=== PATIENT | male | born 1945 | race Caucasian/White ===

== ENCOUNTER 2018-02-18 01:32 | Outpatient (CLI) | payer MEDICARE, BC, SELFPAY | END 2018-02-18 01:52 | PROVIDERS: PCP Family Medicine; Visit Provider Internal Medicine Clinical Cardiac Electrophysiology | DX: I48.91 Unspecified atrial fibrillation (principal); R07.89 Other chest pain; I49.1 Atrial premature depolarization; I49.3 Ventricular premature depolarization | CPT/HCPCS: 93225 ==

== ENCOUNTER 2018-02-19 17:05 | Outpatient (CLI) | payer MEDICARE, BC, SELFPAY ==
--- NOTE | 2018-02-22 09:50 | HOLTER_ITS ---
Holter Monitor DATE OF DICTATION February 22, 2017 24-hour study INTERPRETATION Baseline rhythm sinus. Frequent single PAC. 2 bursts of SVT, longest 3 beat duration, fastest 111 beats per minute. No atrial fibrillation. Rare single PVC. 2 couplet. 1 triplet. No VT. Heart rates as low as 55-60 beats per minute, sinus bradycardia with first degree AV block. SYMPTOMS Tight chest noted twice during sinus rhythm 107, 114 beats per minute, no ST-T wave changes. Average heart rate 67 beats per minute, range 59-123 beats per minute. Pedro Chen M.D. ELIECER/deon T-02/22/2018
== END 2018-02-19 17:25 ==
PROVIDERS: PCP Family Medicine; Visit Provider Internal Medicine Clinical Cardiac Electrophysiology
DX: I48.91 Unspecified atrial fibrillation (principal); R07.89 Other chest pain; I49.1 Atrial premature depolarization; I49.3 Ventricular premature depolarization
CPT/HCPCS: 93226

== ENCOUNTER 2018-02-22 08:48 | Outpatient (CLI) | payer MEDICARE, BC, SELFPAY | END 2018-02-22 09:08 | PROVIDERS: PCP Family Medicine; Referring Provider Family Medicine; Visit Provider Internal Medicine Interventional Cardiology | DX: I48.91 Unspecified atrial fibrillation (principal); R07.89 Other chest pain; I49.1 Atrial premature depolarization; I49.3 Ventricular premature depolarization | CPT/HCPCS: 93227 ==

== ENCOUNTER 2018-05-22 09:12 | Outpatient (CLI) | payer MEDICARE, BC, SELFPAY ==
[2018-05-22 10:51] LABS: ALT 27 U/L (12-78); AST 20 U/L (15-37); Albumin 3.8 g/dL (3.4-5.0); Alkaline Phosphatase 76 U/L (46-116); Anion Gap 5.9 mmol/L (3-11); BUN 18 mg/dL (7-18); Bilirubin, Total 0.4 mg/dL (0.2-1.0); CO2 30.1 mmol/L (21.0-32.0); CREATININE 0.82 mg/dL (0.70-1.30); Calcium 9.3 mg/dL (8.5-10.1); Chloride 104 mmol/L (98-107); Cholesterol 183 mg/dL (50-200); Glucose 96 mg/dL (70-100); HDL Cholesterol 58 mg/dL (40-60); LDL CHOLESTEROL 108 mg/dL (<100); Potassium 4.5 mmol/L (3.5-5.1); Sodium 140 mmol/L (136-145); Total Protein 7.4 g/dL (6.4-8.2); Triglyceride 66 mg/dL (30-150)
== END 2018-05-22 09:32 ==
PROVIDERS: PCP Family Medicine; Visit Provider Family Medicine
DX: E78.5 Hyperlipidemia, unspecified (principal)
CPT/HCPCS: 36415; 80053; 80061; 83721

== ENCOUNTER 2019-09-14 03:37 | Outpatient (CLI) | payer MEDICARE, BC, SELFPAY ==
[2019-09-14 09:09] LABS: Anion Gap 4.1 mmol/L (3-11); BUN 13 mg/dL (7-18); CO2 28.9 mmol/L (21.0-32.0); CREATININE 0.94 mg/dL (0.70-1.30); Calcium 9.5 mg/dL (8.5-10.1); Chloride 107 mmol/L (98-107); Glucose 99 mg/dL (74-106); Potassium 4.6 mmol/L (3.5-5.1); Sodium 140 mmol/L (136-145); TSH (W/Ref FT4) 1.86 uIU/mL (0.36-3.74)
[2019-09-14 09:37] LABS: Folate 17.5 ng/mL (8.6-20.0); Vitamin B12 181 pg/mL (193-986)
[2019-09-15 10:20] LABS: Syphilis Serology (RPR) Negative (Negative)
[2019-09-17 12:46] LABS: Thiamine (Vitamin B1), WB 109 nmol/L (70-180)
== END 2019-09-14 03:57 ==
PROVIDERS: PCP Family Medicine; Visit Provider Family Medicine
DX: G62.9 Polyneuropathy, unspecified (principal); I48.0 Paroxysmal atrial fibrillation
CPT/HCPCS: 36415; 80048; 82607; 82746; 84425; 84443; 86592

== ENCOUNTER 2019-09-23 04:29 | Outpatient (CLI) | payer MEDICARE, BC, SELFPAY ==
[2019-09-23 09:29] LABS: Absolute Basophil Count 0.05 10^3/uL (0.0-0.2); Absolute Eosinophil Count 0.64 10^3/uL (0.0-0.7); Absolute Monocyte Count 0.77 10^3/uL (0.1-0.8); Absolute Neutrophil Count 3.13 10^3/uL (1.2-6.7); Basophils % 0.8; Eosinophils % 9.7; HGB 12.2 g/dL (13.5-17.5); Lymphocytes % 30.3; MCH 26.3 pg (27.0-33.0); MCHC 31.3 % (32.0-36.0); MCV 84.2 fL (80-95); MPV 9.8 fL (8.0-11.0); Monocytes % 11.7; Neutrophils % 47.5; Nucleated RBC 0 %; Platelet Count 224 10^3/uL (130-400); RBC 4.63 10^6/uL (4.36-5.78); RDW 15.5 % (11.8-14.1); RDW-SD 46.7 fL; WBC 6.59 10^3/uL (4.4-10.8)
[2019-09-26 13:16] LABS: Intrinsic Factor Blocking Ab Positive (Negative)
== END 2019-09-23 04:49 ==
PROVIDERS: PCP Family Medicine; Visit Provider Family Medicine
DX: D51.0 Vitamin B12 deficiency anemia due to intrinsic factor deficiency (principal); G62.9 Polyneuropathy, unspecified
CPT/HCPCS: 36415; 85025; 86340

== ENCOUNTER 2019-10-21 02:01 | Outpatient (CLI) | payer MEDICARE, BC, SELFPAY ==
[2019-10-21 09:54] LABS: Vitamin B12 295 pg/mL (193-986)
== END 2019-10-21 02:21 ==
PROVIDERS: PCP Family Medicine; Visit Provider Family Medicine
DX: D51.0 Vitamin B12 deficiency anemia due to intrinsic factor deficiency (principal)
CPT/HCPCS: 36415; 82607

== ENCOUNTER 2019-11-08 19:00 | Outpatient (CLI) | payer MEDICARE, BC, SELFPAY ==
--- NOTE | 2019-11-08 15:57 | DI.RAD_ITS ---
EXAM: XR CHEST 2V PA LATERAL CLINICAL HISTORY: Increasing GOODWIN R06.00 TECHNIQUE: 2D digital imaging was performed. COMPARISON: No exams were available for comparison FINDINGS: The heart is enlarged. A pacemaker is noted. The lungs are clear. No infiltrate, effusion or pulmo nary edema is seen. there are mild degenerative changes in the thoracic spine. . IMPRESSION: No acute abnormality
== END 2019-11-08 19:20 ==
PROVIDERS: PCP Family Medicine; Visit Provider Family Medicine
DX: R06.00 Dyspnea, unspecified (principal); I51.7 Cardiomegaly
CPT/HCPCS: 71046

== ENCOUNTER → 2019-11-09 08:18 | Outpatient (BNVA) | payer MEDICARE, BC, SELFPAY | PROVIDERS: PCP Family Medicine; Referring Provider Family Medicine; Visit Provider Psychiatry & Neurology Neurology | DX: G62.9 Polyneuropathy, unspecified (principal); E53.8 Deficiency of other specified B group vitamins; G56.01 Carpal tunnel syndrome, right upper limb; G25.0 Essential tremor; I10 Essential (primary) hypertension | CPT/HCPCS: 95910; 99204 ==

== ENCOUNTER 2020-01-04 03:12 | Outpatient (CLI) | payer MEDICARE, BC, SELFPAY ==
[2020-01-04 19:07] LABS: Vitamin B12 1981 pg/mL (193-986)
== END 2020-01-04 03:32 ==
PROVIDERS: PCP Family Medicine; Visit Provider Family Medicine
DX: D51.0 Vitamin B12 deficiency anemia due to intrinsic factor deficiency (principal); E53.8 Deficiency of other specified B group vitamins
CPT/HCPCS: 36415; 82607

== ENCOUNTER 2020-01-11 03:36 | Outpatient (CLI) | payer MEDICARE, BC, SELFPAY ==
[2020-01-11 17:29] LABS: Vitamin B12 865 pg/mL (193-986)
== END 2020-01-11 03:56 ==
PROVIDERS: PCP Family Medicine; Visit Provider Family Medicine
DX: E53.8 Deficiency of other specified B group vitamins (principal); D51.0 Vitamin B12 deficiency anemia due to intrinsic factor deficiency
CPT/HCPCS: 36415; 82607

== ENCOUNTER 2020-01-18 03:36 | Outpatient (CLI) | payer MEDICARE, BC, SELFPAY ==
[2020-01-18 15:52] LABS: Abs Immature Grans 0.02 10^3/uL (0.0-0.06); Absolute Basophil Count 0.03 10^3/uL (0.0-0.2); Absolute Eosinophil Count 0.21 10^3/uL (0.0-0.7); Absolute Lymphocyte Count 2.45 10^3/uL (1.2-3.4); Absolute Monocyte Count 0.95 10^3/uL (0.1-0.8); Absolute Neutrophil Count 4.74 10^3/uL (1.2-6.7); Basophils % 0.4; Eosinophils % 2.5; HGB 11.4 g/dL (13.5-17.5); Immature Grans % 0.2; Lymphocytes % 29.2; MCH 26.2 pg (27.0-33.0); MCHC 31.7 % (32.0-36.0); MCV 82.8 fL (80-95); MPV 9.4 fL (8.0-11.0); Monocytes % 11.3; Neutrophils % 56.4; Nucleated RBC 0 %; Platelet Count 222 10^3/uL (130-400); RBC 4.35 10^6/uL (4.36-5.78); RDW-SD 45.3 fL
[2020-01-18 17:36] LABS: Vitamin B12 852 pg/mL (193-986)
== END 2020-01-18 03:56 ==
PROVIDERS: PCP Family Medicine; Visit Provider Family Medicine
DX: D51.0 Vitamin B12 deficiency anemia due to intrinsic factor deficiency (principal); E53.8 Deficiency of other specified B group vitamins
CPT/HCPCS: 36415; 82607; 85025

== ENCOUNTER 2020-01-30 02:12 | Outpatient (CLI) | payer MEDICARE, BC, SELFPAY ==
[2020-01-30 08:00] LABS: Abs Immature Grans 0.01 10^3/uL (0.0-0.06); Absolute Basophil Count 0.04 10^3/uL (0.0-0.2); Absolute Eosinophil Count 0.26 10^3/uL (0.0-0.7); Absolute Lymphocyte Count 2.23 10^3/uL (1.2-3.4); Absolute Monocyte Count 0.68 10^3/uL (0.1-0.8); Absolute Neutrophil Count 2.78 10^3/uL (1.2-6.7); Basophils % 0.7; Eosinophils % 4.3; HCT 36.7 % (40.0-50.0); Immature Grans % 0.2; Lymphocytes % 37.2; MCH 26.8 pg (27.0-33.0); MCHC 32.7 % (32.0-36.0); MCV 81.9 fL (80-95); MPV 9.2 fL (8.0-11.0); Monocytes % 11.3; Neutrophils % 46.3; Nucleated RBC 0 %; Platelet Count 292 10^3/uL (130-400); RBC 4.48 10^6/uL (4.36-5.78); RDW 14.7 % (11.8-14.1); RDW-SD 44.5 fL
[2020-01-30 09:21] LABS: Ferritin 9 ng/mL (26-388); Vitamin B12 1043 pg/mL (193-986)
[2020-01-30 09:30] LABS: Iron 44 ug/dL (65-175); Total Iron Binding Capacity 358 ug/dL (250-450); Transferrin Sat 12 % (20-55)
== END 2020-01-30 02:32 ==
PROVIDERS: PCP Family Medicine; Visit Provider Family Medicine
DX: E53.8 Deficiency of other specified B group vitamins (principal); D51.0 Vitamin B12 deficiency anemia due to intrinsic factor deficiency
CPT/HCPCS: 36415; 82607; 82728; 83540; 83550; 85025

== ENCOUNTER 2020-02-01 02:47 | Outpatient (CLI) | payer MEDICARE, BC, SELFPAY ==
[2020-02-01 11:38] LABS: Reticulocyte 0.9 % (0.5-2.4)
[2020-02-01 12:19] LABS: C-Reactive Protein 0.26 mg/dL (0.0-0.3)
[2020-02-01 12:43] LABS: ESR 25 mm/hr (1-20)
[2020-02-02 10:22] LABS: IgA 367 mg/dL (85-499); IgG 1285 mg/dL (610-1,616); IgM 123 mg/dL (35-242); Kappa Free Light Chain 1.99 mg/dL (0.33-1.94); Lambda Free Light Chain 1.33 mg/dL (0.57-2.63)
[2020-02-06 13:38] LABS: Albumin 57.2 % (55.8-66.1); Total Protein 7.9 g/dL (6.3-8.2)
== END 2020-02-01 03:07 ==
PROVIDERS: Internal Medicine Hematology; PCP Family Medicine; Visit Provider Family Medicine
DX: D53.9 Nutritional anemia, unspecified (principal); M26.69 Other specified disorders of temporomandibular joint
CPT/HCPCS: 36415; 82784; 85652; 83883; 84165; 84443; 85045; 86140

== ENCOUNTER 2020-02-16 01:27 | Outpatient (CLI) | payer MEDICARE, BC, SELFPAY ==
--- NOTE | 2020-02-16 12:45 | DI.CT_ITS ---
EXAM: CT HEAD WO/W CLINICAL HISTORY: POSITIONAL HEADACHE, R51.0, > MASS. TECHNIQUE: Imaging Protocol: Both noninfused and contrast infused CT scans of the brain were perform ed. IV Contrast Dose =100 cc Axial computed tomography images with coronal and sagittal reformatted images were created and review ed COMPARISON: No exams were available for comparison FINDINGS: There are no skull fractures nor fluid in the visualized paranasal sinuses. There is no evidence of intracranial hemorrhage, mass effect, or shift of midline structures. There are no extra-axial fluid collections. The ventricles are not enlarged or shifted and there is no blo od within the ventricular system nor within the basal cisterns. There are no ring enhancing lesions in the brain and there is no abnormal meningeal enhancement, foca l or diffuse. No obvious aneurysm or vascular malformation. IMPRESSION: No significant intracranial findings. No significant enhancing intracranial findings. RADIATION DOSE DELIVERED: 1,751.33mGy.cm Total DLP DATA REPOSITORY: All CT scans at this facility are submitted to the National Radiology Data Registry (NRDR) Dose Index Registry (DIR) with the [employer] (ACR). RADIATION OPTIMIZATION: All CT scans at this facility use at least one of these dose optimization te chniques: automated exposure control; mA and/or kV adjustment per patient size (includes targeted exa ms where dose is matched to clinical indication); or iterative reconstruction.
[2020-02-16] MEDS: Omnipaque 350 MG/ML 100 ML BTL IJ (13:05)
[2020-02-16 13:09] LABS: CREATININE 0.87 mg/dL (0.70-1.30)
== END 2020-02-16 01:47 ==
PROVIDERS: PCP Family Medicine; Visit Provider Psychiatry & Neurology Neurology
DX: R51.0 Headache with orthostatic component, not elsewhere classified (principal); R20.2 Paresthesia of skin; R42 Dizziness and giddiness; D50.9 Iron deficiency anemia, unspecified; M54.2 Cervicalgia
CPT/HCPCS: 70470; 82565; J3490

== ENCOUNTER 2020-02-29 03:23 | Outpatient (RCR) | payer MEDICARE, BC, SELFPAY ==
[2020-02-29] MEDS: SODIUM FER. GLUC./SUC. 125 MG in Normal Saline 100 ML 110 MG IVPB (09:17)
[2020-02-29] MEDS: Normal Saline Flush 10 ML SYR IVP (09:17)
== END 2020-03-11 23:59 | disposition home or self-care (01) ==
LOC: INF 03:23
PROVIDERS: PCP Family Medicine; Visit Provider Internal Medicine
DX: D50.9 Iron deficiency anemia, unspecified (principal)
CPT/HCPCS: 96365; J2916

== ENCOUNTER 2020-03-05 05:11 | Outpatient (CLI) | payer MEDICARE, BC, SELFPAY ==
[2020-03-05 08:40] LABS: Abs Immature Grans 0.01 10^3/uL (0.0-0.06); Absolute Basophil Count 0.03 10^3/uL (0.0-0.2); Absolute Lymphocyte Count 2.22 10^3/uL (1.2-3.4); Absolute Monocyte Count 0.62 10^3/uL (0.1-0.8); Absolute Neutrophil Count 2.33 10^3/uL (1.2-6.7); Basophils % 0.6; Eosinophils % 3.7; HCT 36.6 % (40.0-50.0); HGB 11.5 g/dL (13.5-17.5); Immature Grans % 0.2; MCH 26.1 pg (27.0-33.0); MCHC 31.4 % (32.0-36.0); MCV 83.2 fL (80-95); MPV 9.9 fL (8.0-11.0); Monocytes % 11.5; Nucleated RBC 0 %; Platelet Count 251 10^3/uL (130-400); RDW 15.9 % (11.8-14.1); RDW-SD 48.3 fL; WBC 5.41 10^3/uL (4.4-10.8)
[2020-03-05 09:04] LABS: Iron 48 ug/dL (65-175); Total Iron Binding Capacity 323 ug/dL (250-450); Transferrin Sat 15 % (20-55)
[2020-03-05 09:35] LABS: Vitamin B12 596 pg/mL (193-986)
== END 2020-03-05 05:31 ==
PROVIDERS: PCP Family Medicine; Visit Provider Family Medicine
DX: D51.0 Vitamin B12 deficiency anemia due to intrinsic factor deficiency (principal); E61.1 Iron deficiency; E53.8 Deficiency of other specified B group vitamins
CPT/HCPCS: 36415; 82607; 83540; 83550; 85025

== ENCOUNTER 2020-04-03 01:51 | Outpatient (RCR) | payer MEDICARE, BC, SELFPAY ==
[2020-03-13] MEDS: Normal Saline Flush 10 ML SYR IVP (10:37)
[2020-03-13] MEDS: SODIUM FER. GLUC./SUC. 125 MG in Normal Saline 100 ML 110 MG IVPB (10:53)
[2020-03-20] MEDS: Normal Saline Flush 10 ML SYR IVP (11:00)
[2020-03-20] MEDS: SODIUM FER. GLUC./SUC. 125 MG in Normal Saline 100 ML 110 MG IVPB (11:00)
[2020-03-27] MEDS: SODIUM FER. GLUC./SUC. 125 MG in Normal Saline 100 ML 110 MG IVPB (10:57)
[2020-03-27] MEDS: Normal Saline Flush 10 ML SYR IVP (10:58)
[2020-04-03] MEDS: Normal Saline Flush 10 ML SYR IVP (10:38)
[2020-04-03] MEDS: SODIUM FER. GLUC./SUC. 125 MG in Normal Saline 100 ML 110 MG IVPB (10:48)
== END 2020-04-08 23:59 | disposition home or self-care (01) ==
LOC: INF 01:51
PROVIDERS: PCP Family Medicine; Visit Provider Internal Medicine
DX: D50.9 Iron deficiency anemia, unspecified (principal)
CPT/HCPCS: 96365; J2916

== ENCOUNTER 2020-04-17 02:38 | Outpatient (RCR) | payer MEDICARE, BC, SELFPAY ==
[2020-04-10] MEDS: Normal Saline Flush 10 ML SYR IVP (10:50)
[2020-04-10] MEDS: SODIUM FER. GLUC./SUC. 125 MG in Normal Saline 100 ML 110 MG IVPB (10:50)
[2020-04-17] MEDS: SODIUM FER. GLUC./SUC. 125 MG in Normal Saline 100 ML 110 MG IVPB (10:45)
[2020-04-17] MEDS: Normal Saline Flush 10 ML SYR IVP (12:16)
== END 2020-05-09 23:59 | disposition home or self-care (01) ==
LOC: INF 02:38
PROVIDERS: PCP Family Medicine; Visit Provider Internal Medicine
DX: D50.9 Iron deficiency anemia, unspecified (principal)
CPT/HCPCS: 96365; J2916

== ENCOUNTER 2020-04-23 07:06 | Outpatient (CLI) | payer MEDICARE, BC, SELFPAY ==
[2020-04-23 07:37] LABS: Abs Immature Grans 0.01 10^3/uL (0.0-0.06); Absolute Basophil Count 0.03 10^3/uL (0.0-0.2); Absolute Eosinophil Count 0.22 10^3/uL (0.0-0.7); Absolute Lymphocyte Count 2.07 10^3/uL (1.2-3.4); Absolute Monocyte Count 0.58 10^3/uL (0.1-0.8); Absolute Neutrophil Count 2.04 10^3/uL (1.2-6.7); Basophils % 0.6; Eosinophils % 4.4; HCT 42.4 % (40.0-50.0); HGB 13.4 g/dL (13.5-17.5); Immature Grans % 0.2; Lymphocytes % 41.8; MCH 27.8 pg (27.0-33.0); MCHC 31.6 % (32.0-36.0); MPV 9.5 fL (8.0-11.0); Monocytes % 11.7; Neutrophils % 41.3; Nucleated RBC 0 %; Platelet Count 218 10^3/uL (130-400); RBC 4.82 10^6/uL (4.36-5.78); RDW 18.8 % (11.8-14.1); WBC 4.95 10^3/uL (4.4-10.8)
[2020-04-23 08:10] LABS: Iron 100 ug/dL (65-175); Total Iron Binding Capacity 289 ug/dL (250-450); Transferrin Sat 35 % (20-55)
[2020-04-23 08:38] LABS: Vitamin B12 664 pg/mL (193-986)
== END 2020-04-23 07:07 | disposition home or self-care (01) ==
LOC: LBO 07:06
PROVIDERS: PCP Family Medicine; Visit Provider Family Medicine
DX: D51.0 Vitamin B12 deficiency anemia due to intrinsic factor deficiency (principal); E61.1 Iron deficiency
CPT/HCPCS: 36415; 82607; 83540; 83550; 85025

== ENCOUNTER 2020-07-04 12:35 | Outpatient (RCR) | payer MEDICARE, BC, SELFPAY ==
--- NOTE | 2020-07-04 15:00 | HOLTER_ITS ---
APPROVED REPORT Conclusion This is a 48-hour monitor ordered for indication of pacemaker. The patient was in what appears to be an atrially paced rhythm with an average heart rate of 73 bpm. There are no episodes of ventricular tachycardia nor any episodes of supraventricular tachycardia. T here were rare PACs/PVCs. There were no episodes of atrial fibrillation, no pauses greater than 3 seconds and no evidence of hi gh degree heart block. There were 10 patient recorded events all of which were associated with atrially paced rhythm and sin gular PVCs.
== END 2020-07-09 23:59 | disposition home or self-care (01) ==
LOC: RT 12:35
PROVIDERS: PCP Family Medicine; Visit Provider Internal Medicine Clinical Cardiac Electrophysiology
DX: I48.91 Unspecified atrial fibrillation (principal); Z95.0 Presence of cardiac pacemaker
CPT/HCPCS: 93225; 93226

== ENCOUNTER 2020-07-10 10:44 | Outpatient (CLI) | payer MEDICARE, BC, SELFPAY | END 2020-07-10 10:45 | LOC: CARDO 09-17 12:28 | PROVIDERS: PCP Family Medicine; Referring Provider Internal Medicine Clinical Cardiac Electrophysiology; Visit Provider Internal Medicine Cardiovascular Disease | DX: I48.91 Unspecified atrial fibrillation (principal); Z95.0 Presence of cardiac pacemaker; I49.3 Ventricular premature depolarization | CPT/HCPCS: 93227 ==

== ENCOUNTER 2020-07-12 03:14 | Outpatient (CLI) | payer MEDICARE, BC, SELFPAY ==
[2020-07-12 07:47] LABS: Abs Immature Grans 0.01 10^3/uL (0.0-0.06); Absolute Basophil Count 0.02 10^3/uL (0.0-0.2); Absolute Eosinophil Count 0.18 10^3/uL (0.0-0.7); Absolute Lymphocyte Count 2.27 10^3/uL (1.2-3.4); Absolute Monocyte Count 0.66 10^3/uL (0.1-0.8); Absolute Neutrophil Count 2.43 10^3/uL (1.2-6.7); Basophils % 0.4; Eosinophils % 3.2; HCT 42.1 % (40.0-50.0); HGB 13.9 g/dL (13.5-17.5); Immature Grans % 0.2; Lymphocytes % 40.8; MCH 29.8 pg (27.0-33.0); MCV 90.3 fL (80-95); MPV 9.3 fL (8.0-11.0); Monocytes % 11.8; Neutrophils % 43.6; Nucleated RBC 0 %; Platelet Count 202 10^3/uL (130-400); RBC 4.66 10^6/uL (4.36-5.78); RDW 14.6 % (11.8-14.1); RDW-SD 48.9 fL; WBC 5.57 10^3/uL (4.4-10.8)
[2020-07-12 08:42] LABS: Iron 117 ug/dL (65-175); Total Iron Binding Capacity 288 ug/dL (250-450); Transferrin Sat 41 % (20-55)
[2020-07-12 09:00] LABS: Calculated LDL 123 mg/dL (<100); Cholesterol 206 mg/dL (<200); HDL Cholesterol 72 mg/dL (40-60); Triglyceride 56 mg/dL (<150); Vitamin B12 636 pg/mL (193-986)
== END 2020-07-12 03:15 | disposition home or self-care (01) ==
LOC: LBO 03:14
PROVIDERS: PCP Family Medicine; Visit Provider Family Medicine
DX: D51.0 Vitamin B12 deficiency anemia due to intrinsic factor deficiency (principal); E78.5 Hyperlipidemia, unspecified; I10 Essential (primary) hypertension
CPT/HCPCS: 36415; 80061; 82607; 83540; 83550; 85025

== ENCOUNTER 2020-08-14 02:37 | Outpatient (CLI) | payer MEDICARE, BC, SELFPAY ==
--- NOTE | 2020-08-14 07:30 | DI.NM_ITS ---
APPROVED REPORT Exam: Pharmacologic Patient Location: Out-Patient Room/Bed: Stress Nurse: Lauren Gracia RN Ordering Provider:SIMI JACKSON, Contact Number: [phone] BMI: 29.83 Baseline Rhythm: Atrial paced Comment: Flipped T waves lead III Indications: New onset angina with exertion, chest pain Medical History Medical History: Afib, Aflutter, hypetension, hyperlipidemia, OA, peripheral nueropathy, anemia, iron deficiency, basal cell carcinoma, colon ca, BPH Cardiac Medications: Dofetilide, apixiban, amlodipine Allergies: Finasteride Cardiac Risk Factors: Hypertension, hyperlipidemia Previous Cardiac Procedures: Ablation x5 ([id number]), pacemaker Pretest Chest Pain Characteristics: None Exercise History: Physically active Physical Disabilities: None Lung Sounds: Clear to auscultation Heart Sounds: Regular Stress Test Details Test: Pharmacologic stress was paired with low level exercise. Reason for pharmacologic stress test: pacemaker. Nuclear Acquisition: Rest Tc-99m/Stress Tc-99m 1 day Rest Isotope: Tc-99m Sestamibi. Dose: 11.5 Date: 08/14/2020 Injection Time: 0900 Stress Isotope: Tc-99m Sestamibi. Dose: 38.0 Date: 08/14/2020 Injection Time: 1020 HR Resting HR Supine: 70 bpm Max Heart Rate (APMHR): 148.202375 bpm Resting HR Standin bpm Target HR (85% APMHR): 125.616195 bpm Max HR Achieved: 81 bpm % of APMHR: 54.73 Recovery HR: 71 bpm BP Resting BP Supine: 150/92 mmHg Resting BP Standin/88 mmHg Max BP: 150/92 mmHg Recovery BP: 138/84 mmHg ECG Resting ECG: Atrial paced rhythm Ectopy: None Stress ECG: Atrial paced rhythm ST Change: No significant ST segment changes noted Arrhythmia: Rare PVC Recovery ECG: Atrial paced rhythm Recovery ST Change: No significant ST segment changes noted Recovery Arrhythmia: None Clinical Stress Symptoms: Chest tightness Exercise duration: 4 min15 sec Exercise capacity: 2.53 METs Rate Pressure Product: [id number] Stress ECG Conclusion 1. The patient is atrially paced with inferior T wave inversions at baseline. 2. This is a pharmacological stress test. 3. The EKG portion of this exam is nondiagnostic. Stress Test Summary STAGE HR BP Symptoms NOTES Supine 70 150/92 1 min post Lexiscan injection 80 138/90 mild chest tightness SpO2 98% 3 min post Lexiscan injection 78 142/78 resolved 6 min post Lexiscan injection 71 138/84 MPI Conclusion The ejection fraction was 54% with stress. There were no wall motion abnormalities. There was no evidence of ischemia on the imaging portion exam. This represents a normal SPECT stress test. Radiologist Interpretation Cholelithiasis Radiologist Interpretation by: Tesfaye Vides MD Interpretation Date/Time: 08/14/2020 15:53:41
[2020-08-14] MEDS: Regadenoson 0.4 MG/5 ML SYR IVP (10:51)
== END 2020-08-14 02:57 ==
PROVIDERS: PCP Family Medicine; Visit Provider Family Medicine
DX: R07.9 Chest pain, unspecified (principal); Z95.0 Presence of cardiac pacemaker; I10 Essential (primary) hypertension; E78.5 Hyperlipidemia, unspecified; K80.20 Calculus of gallbladder without cholecystitis without obstruction
CPT/HCPCS: 78452; 93016; 93018; 93017; J2785

== ENCOUNTER 2020-11-13 12:49 | Outpatient (CLI) | payer MEDICARE, BC, SELFPAY ==
--- NOTE | 2020-11-13 12:45 | DI.RAD_ITS ---
Exam(s) XR HAND RT COMPLETE EXAM: XR HAND RT COMPLETE CLINICAL HISTORY: Crush injury to 5th PIP joint, S69.91XA. TECHNIQUE: 2D digital imaging was performed of the right hand. Three images were obtained. AP, late ral and oblique views were obtained. COMPARISON: No exams were available for comparison FINDINGS: BONES: No acute fracture is present. No bony destructive lesion is seen. JOINTS: No dislocation present. Mild degenerative changes of the interphalangeal joint of the thumb. SOFT TISSUE: Normal. IMPRESSION: No acute fracture or dislocation. DATA REPOSITORY: RADIATION DOSE DELIVERED:
== END 2020-11-13 13:09 ==
PROVIDERS: PCP Family Medicine; Visit Provider Family Medicine
DX: S69.91XA Unspecified injury of right wrist, hand and finger(s), initial encounter (principal); X58.XXXA Exposure to other specified factors, initial encounter
CPT/HCPCS: 73130

== ENCOUNTER 2020-12-13 02:58 | Outpatient (CLI) | payer MEDICARE, BC, SELFPAY ==
[2020-12-13 08:12] LABS: Iron 108 ug/dL (65-175); Total Iron Binding Capacity 308 ug/dL (250-450); Transferrin Sat 35 % (20-55)
[2020-12-13 08:38] LABS: ALT 28 U/L (16-63); AST 22 U/L (15-37); Albumin 3.9 g/dL (3.4-5.0); Alkaline Phosphatase 66 U/L (46-116); Anion Gap 7.9 mmol/L (3-11); BUN 16 mg/dL (7-18); Bilirubin, Total 0.6 mg/dL (0.2-1.0); CO2 30.1 mmol/L (21.0-32.0); Chloride 106 mmol/L (98-107); Glucose 111 mg/dL (74-106); Sodium 144 mmol/L (136-145); Total Protein 7.2 g/dL (6.4-8.2); Vitamin B12 573 pg/mL (193-986)
== END 2020-12-13 02:59 | disposition home or self-care (01) ==
LOC: LBO 02:58
PROVIDERS: PCP Family Medicine; Visit Provider Family Medicine
DX: E78.5 Hyperlipidemia, unspecified; E61.1 Iron deficiency; E53.8 Deficiency of other specified B group vitamins
CPT/HCPCS: 36415; 80053; 82607; 83540; 83550

== ENCOUNTER 2021-03-21 02:17 | Outpatient (CLI) | payer MEDICARE, BC, SELFPAY ==
--- NOTE | 2021-03-21 07:50 | DI.CT_ITS ---
Exam(s) CT RENAL COLIC WO EXAM: CT RENAL COLIC WO CLINICAL HISTORY: L>R flank pain, hematuria, r/o kidney stone,r10.9. TECHNIQUE: Imaging Protocol: Axial computed tomography images with coronal and sagittal reformatted images were created and reviewed CONTRAST MATERIAL: Intravenous: none Oral: None COMPARISON: CT,NM,TMT NM MPI REST STRESS GRP from 08/14/2020 FINDINGS: VISUALIZED LUNG BASES: There is pleural based infiltrate in the lateral basal segment of the right lo wer lobe. No associated pleural effusion nor overlying rib destruction.. Pacemaker wire is noted in the right atrium ABDOMEN: There is no ascites. LIVER: There are no obvious focal hepatic lesions evident of this noninfused study. GALLBLADDER/BILIARY: There is a solitary 3 millimeter calculus in the gallbladder lumen. No gallblad day wall edema nor pericholecystic fluid. No calculi evident in the cystic duct and nondilated commo n bile duct. CBD is not dilated. PANCREAS: No abnormality seen in the pancreatic head and neck. However, there appears to be an isode nse possible mass in the pancreatic body measuring 3.8 by 2.9 x 2.8 cm and associated with a single 3 millimeter calcification. Pancreatic duct is not dilated. SPLEEN: Spleen is not enlarged. No obvious intrasplenic lesions. There are few tiny calcified granu steve in the spleen evident. ADRENALS: There are no significant adrenal masses. KIDNEYS:No cysts evident. No solid renal masses. No calculi nor hydronephrosis. . ABDOMINAL AORTA: Abdominal aorta is not enlarged. LYMPH NODES: There is no retroperitoneal nor paraaortic adenopathy. ABDOMINAL WALL: No evidence of significant anterior abdominal wall nor inguinal hernia. GI: There is no evidence of bowel obstruction, free air, nor abscess. PELVIS: LYMPH NODES: There is no intrapelvic nor inguinal adenopathy. GI: No evidence of appendicitis.Sigmoid is extremely redundant, reaching the right upper quadrant of the abdomen. There is a mild associated mesenteric swirl. There is no evidence of diverticulosis no r diverticulitis. URINARY BLADDER: Bladder is not distended. No obvious mass nor calculus therein. REPRODUCTIVE: Prostate at a is mildly enlarged and slightly lobulated. Seminal vesicles are also lob ulated. OSSEOUS: No significant osseous lesions. IMPRESSION: 1. No evidence of nephrolithiasis, urolithiasis, nor radiopaque calculi in the urinary bladder. No h ydronephrosis nor hydroureter. 2. The sigmoid colon in this patient is very redundant, extending to the right upper quadrant of the abdomen. However, there is no evidence of bowel obstruction. Also no significant diverticular disea se. No evidence of appendicitis. No ascites. 3. There is a single 3-4 millimeter gallstone in the gallbladder lumen. No gallbladder wall edema no r pericholecystic fluid. No dilatation of the biliary tree. 4. Incidentally noted is a possible subtle isodense mass in the pancreatic body and further imaging with IV contrast study is recommended to assess for pancreatic neoplasm. 5. Also noted is pleural based infiltrate in the right lung base, specifically in the lateral basal segment of the right lower lobe. There is no associated pleural effusion or rib destruction. Nevert heless, this also requires appropriate follow-up. This report was prioritized to the referring provider. RADIATION DOSE DELIVERED: 944.03mGy.cm Total DLP DATA REPOSITORY: All CT scans at this facility are submitted to the National Radiology Data Registry (NRDR) Dose Index Registry (DIR) with the [employer] (ACR). RADIATION OPTIMIZATION: All CT scans at this facility use at least one of these dose optimization te chniques: automated exposure control; mA and/or kV adjustment per patient size (includes targeted exa ms where dose is matched to clinical indication); or iterative reconstruction.
== END 2021-03-21 02:37 ==
PROVIDERS: PCP Family Medicine; Visit Provider Family Medicine
DX: R10.32 Left lower quadrant pain (principal); R31.9 Hematuria, unspecified; K86.89 Other specified diseases of pancreas; K80.20 Calculus of gallbladder without cholecystitis without obstruction; N40.0 Benign prostatic hyperplasia without lower urinary tract symptoms; R91.8 Other nonspecific abnormal finding of lung field
CPT/HCPCS: 74176

== ENCOUNTER 2021-04-03 00:32 | Outpatient (CLI) | payer MEDICARE, BC, SELFPAY ==
[2021-04-03 09:10] LABS: CREATININE 0.8 mg/dL (0.70-1.30)
--- NOTE | 2021-04-03 09:39 | DI.CT_ITS ---
Exam(s) CT CHEST W EXAM: CT CHEST W CLINICAL HISTORY: F/U incidental infiltrate seen on non-contrast CT,r91.8 TECHNIQUE: Imaging Protocol: Axial computed tomography images with coronal and sagittal reformatted images were created and reviewed CONTRAST MATERIAL: Intravenous: Omnipaque 350 Contrast volume:structured data in ml. COMPARISON: CT,NM,TMT NM MPI REST STRESS GRP from 08/14/[address] ABDOMEN WO/W from 04/03/2021 FINDINGS: Tracheobronchial tree: No bronchiectasis or mucous plugging. Mediastinum and Patti: No dominant adenopathy or fluid collection. Pulmonary parenchyma: Area scarring right lower lobe, unchanged from [address] nuclear medicine [address] attenuation images. No consolidation or dominant measurable mass. Calcifications peripheral lat eral right upper lobe, left lower lobe and right middle lobe. Consistent with healed granulomatous d isease. Pleura: No effusion or pneumothorax. Heart: The heart is moderately dilated. Mild coronary artery calcifications are seen. Aorta: Thoracic aorta non-dilated. Upper abdomen: Unremarkable where visualized.. Lymph nodes: Within normal limits. Bones: Osteophytes thoracic spine. Soft tissues: pacemaker overlying left pectoral muscle. Mild bilateral gynecomastia. IMPRESSION: Stable area of scarring right lower lobe. No suspicious abnormalities. RADIATION DOSE DELIVERED: Total DLP DATA REPOSITORY: All CT scans at this facility are submitted to the National Radiology Data Registry (NRDR) Dose Index Registry (DIR) with the [employer] (ACR). RADIATION OPTIMIZATION: All CT scans at this facility use at least one of these dose optimization te chniques: automated exposure control; mA and/or kV adjustment per patient size (includes targeted exa ms where dose is matched to clinical indication); or iterative reconstruction.
--- NOTE | 2021-04-03 09:39 | DI.CT_ITS ---
Exam(s) CT ABDOMEN WO/W EXAM: CT ABDOMEN WO/W CLINICAL HISTORY: pancreatic mass seen on prev imaging,k86.89. TECHNIQUE: Imaging Protocol: Axial computed tomography images with coronal and sagittal reformatted images were created and reviewed CONTRAST MATERIAL: Intravenous: Omnipaque 350 Contrast volume:100 ml Contrast route:IV - Oral: yes COMPARISON: CT,NM,TMT NM MPI REST STRESS GRP from 08/14/[address] RENAL COLIC WO from 03/21/2021 FINDINGS: ABDOMEN: Lung Bases: Scarring right lower lobe. Punctate calcifications left lower lobe.. Liver: Normal density. No measurable mass. Gallbladder and biliary tract: Single tiny calcification. No wall thickening. No biliary dilatation .. Pancreas: Overall normal density. Subtle low-attenuation ill-defined area in the body measuring roug hly 3.5 cm. There is some stranding in the adjacent fat. No definite vascular invasion. Spleen: Normal. Kidneys: Normal size, contour and axis. No radiodense stones or obstructive uropathy. No masses seen. Adrenal glands: No masses seen. Abdominal Aorta: Abdominal portion non-dilated. Lymph nodes: 1.8 centimeter maximal dimension lymph node posterior to the left adrenal gland. IMPRESSION: 3.5 centimeter ill-defined mass in the body of the pancreas. 1.8 centimeter left retroperitoneal lym ph node. RADIATION DOSE DELIVERED: Total DLP DATA REPOSITORY: All CT scans at this facility are submitted to the National Radiology Data Registry (NRDR) Dose Index Registry (DIR) with the [employer] (ACR). RADIATION OPTIMIZATION: All CT scans at this facility use at least one of these dose optimization te chniques: automated exposure control; mA and/or kV adjustment per patient size (includes targeted exa ms where dose is matched to clinical indication); or iterative reconstruction.
[2021-04-03] MEDS: Omnipaque 350 MG/ML 100 ML BTL IJ (10:14)
[2021-04-03] MEDS: Breeza Beverage 473 ML BTL 946 ML PO (10:16)
[2021-04-03] MEDS: Normal Saline Flush 10 ML SYR IVP (10:19)
== END 2021-04-03 00:52 ==
PROVIDERS: PCP Family Medicine; Visit Provider Family Medicine
DX: Z01.812 Encounter for preprocedural laboratory examination; R91.8 Other nonspecific abnormal finding of lung field; J98.4 Other disorders of lung; Z95.0 Presence of cardiac pacemaker; K86.89 Other specified diseases of pancreas; R59.0 Localized enlarged lymph nodes
CPT/HCPCS: 71260; 74170; 82565; J3490

== ENCOUNTER 2021-04-15 04:24 | Outpatient (CLI) | payer MEDICARE, BC, SELFPAY ==
[2021-04-17 12:17] LABS: CA 19-9 260 U/mL (<35)
== END 2021-04-15 04:25 | disposition home or self-care (01) ==
LOC: LBO 04:24
PROVIDERS: PCP Family Medicine; Visit Provider Family Medicine
DX: K86.89 Other specified diseases of pancreas (principal)
CPT/HCPCS: 36415; 86301

== ENCOUNTER 2021-05-20 09:28 | Emergency (ER) | payer MEDICARE, BC, SELFPAY ==
[2021-05-20 09:48] VITALS: BP 138/81; PULSE 72; RESP 16; TEMP 36.6; O2SAT 97
[2021-05-20 09:56] VITALS: BP 138/81; PULSE 75
[2021-05-20 10:34] LABS: Abs Immature Grans 0.02 10^3/uL (0.0-0.06); Absolute Basophil Count 0.02 10^3/uL (0.0-0.2); Absolute Eosinophil Count 0.11 10^3/uL (0.0-0.7); Absolute Lymphocyte Count 1.35 10^3/uL (1.2-3.4); Absolute Monocyte Count 0.61 10^3/uL (0.1-0.8); Absolute Neutrophil Count 3.73 10^3/uL (1.2-6.7); Basophils % 0.3; Eosinophils % 1.9; HCT 40.3 % (40.0-50.0); HGB 13.5 g/dL (13.5-17.5); Immature Grans % 0.3; Lactate 1.2 mmol/L (0.6-1.4); Lymphocytes % 23.1; MCH 30.2 pg (27.0-33.0); MCHC 33.5 % (32.0-36.0); MCV 90.2 fL (80-95); MPV 9.8 fL (8.0-11.0); Monocytes % 10.4; Nucleated RBC 0 %; Platelet Count 202 10^3/uL (130-400); RBC 4.47 10^6/uL (4.36-5.78); RDW-SD 42.5 fL; WBC 5.84 10^3/uL (4.4-10.8)
--- NOTE | 2021-05-20 10:36 | ED.GENADUL_ITS ---
Discharge Plan Disposition Patient Disposition: HOME Condition: Improving Discharge Details Clinical Impression: Diarrhea Primary Care Provider: Hesham Geiger ED Provider: Mae Valdez Home Meds and New Rx's Prescriptions: Continued ibuprofen 800 mg tablet 800 mg PO BID-TID PRN (Reason: pain) Qty: 90 1RF cyclobenzaprine 5 mg tablet 5 mg PO TID PRN (Reason: muscle spasm) Qty: 30 0RF lidocaine 5 % cream 1 applic topical QID PRN (Reason: pain) Qty: 30 1RF Rx Instructions: apply q6hr prn pain to both feet cyanocobalamin (vitamin B-12) 1,000 mcg/mL solution 1,000 mcg IM .q14 Qty: 25 11RF (DME) Syringe 3cc/25Gx1 3 mL 25 gauge x 1 syringe See Rx Instructions .ROUTE .MEDSUPPLY Qty: 100 3RF Rx Instructions: to administer vitamin B-12 injections Q14. E53.9 (DME) needle (disp) 18 G [BD Regular [place]vel [place]] 18 gauge x 1 needle See Rx Instructions .ROUTE .MEDSUPPLY Qty: 100 3RF Rx Instructions: As directed, Qweek, to inject B12 apixaban 5 mg tablet 5 mg PO BID Qty: 180 3RF amlodipine 5 mg tablet 5 mg PO DAILY Qty: 90 3RF dofetilide 250 mcg capsule 250 mcg PO Q12H Qty: 180 3RF lorazepam 0.5 mg tablet 0.5 mg PO Q6H PRN0RF Rx Instructions: nausea per note dated 05/06/21 [facility] [place] [facility] [place]50 [Miralax] 17 gram/dose powder 17 g PO DAILY PRN0RF Rx Instructions: Per note dated 05/06/21 [facility] loperamide [Imodium A-D] 2 mg tablet 2 mg PO Q6H PRN0RF Rx Instructions: [place] dated 05/06/21 [facility] [place] 5 mg tablet 5 mg PO QHS 0RF Rx Instructions: On chemo days tramadol 50 mg tablet 50 mg PO Q6H 0RF Label Comments: TAKE 1 TABLET BY MOUTH EVERY 6 HOURS NEEDED FOR PAIN lidocaine HCl [Lidocaine Viscous] 2 % solution 0RF Label Comments: RINSE AND GARGLE 5 ML BY MOUTH EVERY 4 HOURS NEEDED FOR PAIN oxycodone 5 mg tablet 5 mg PO Q4H 0RF Label Comments: TAKE 1 TABLET BY MOUTH EVERY 4 HOURS NEEDED FOR PAIN Discharge Instructions Instructions: Acute Diarrhea (ED) Additional Instructions: Please return immediately to the emergency department if you develop any new or worsening symptoms, if your condition does not improve as expected, or if you become otherwise concerned. It is extremely important that you call soon as possible to make an appointment to be seen in follow-up for this visit by your primary care doctor and your oncologist Referrals: Hesham Geiger DO [Primary Care Provider] - Sher Prieto MD [ CONSULTING PHYSICIAN] - Discharge Data Discharge Date/Time-TO BE ENTERED AT DEPARTURE: 05/20/21 13:58 Medical Decision Making Nicholas Golden is a 75-year-old man with a history of paroxysmal atrial fibrillation on apixaban status post pacemaker, hyperlipidemia, hypertension, pancreatic cancer diagnosed 04/30 with chemotherapy initiated 05/09/2021 presenting to emergency department with diarrhea. Patient reports that he has received 1 infusion of chemotherapy. He reports that several days after infusion he developed watery diarrhea. Patient reports that this has been ongoing every day and seems to be getting worse in the past 2 to 3 days. Patient also reports that he had sharp abdominal cramping with diarrhea this morning which was new, also reports that there was small amount of bright red blood mixed in with stool this morning. Patient reports that stool has been normal light brown-colored. No black or dark stool. Patient reports that abdominal pain was in the lower abdomen, has improved and is mild point. He reports that he has had a good appetite and has been eating and drinking fluids fairly well. He denies fever, cough, shortness of breath, vomiting, numbness, weakness, rash. Cancer center had called prior to alert of patient's arrival to the ED, they had noted that diarrhea is a side effect of patient's chemotherapy, noted that they were concerned about dehydration and possible electrolyte imbalance. On exam patient is very well and nontoxic-appearing. Benign cardiopulmonary exam. Mild tenderness palpation across lower abdomen without focal tenderness and without peritoneal signs. Concern for likely medication side effect, dehydration, possible electrolyte imbalance, possible colitis, other. Doubt C. difficile, other bacterial/parasitic etiology of diarrhea. Exam/history at this time is not consistent with massive GI bleed, sepsis, acute appendicitis, other acute emergent intra-abdominal surgical process. Plan for IV placement, IV flui d hydration, screening labs, stool studies. Patient declined pain medication at this time. Labs show hemoglobin 13.5, WBC 5.84, lactate 1.2. Patient reports that he feels improved after IV fluids, reports that he feels very well and ready to go, has had bowel movement in the emergency department with no blood, report that bowel movement in ED more solid than what he has been having. Patient reports that he is not having any abdominal pain but states that he would like to be discharged that he may have a cheeseburger for lunch. C. difficile test as negative. Very low suspicion for infectious colitis, other acute emergent intra-abdominal process at this time, CT abdomen/pelvis not indicated. No evidence of emergent GI bleed. Plan for discharge home with outpatient follow-up with PCP and oncology. I had a discussion with Patient regarding return to emergency department precautions, home care, and importance of outpatient follow-up. Pt verbalizes understanding of the plan and is amenable. Patient discharged to home with clear plan for outpatient follow-up. All questions were answered. Disposition decision was made weighing the risks and benefits of hospitalization versus outpatient treatment, the risk for further decompensation, and the patient's wishes. Lab Data Labs: Laboratory Tests Range/Units 05/20/21 05/20/21 05/20/21 10:15 10:15 10:15 WBC (4.4-10.8) 10^3/uL 5.84 RBC (4.36-5.78) 10^6/uL 4.47 Hgb (13.5-17.5) g/dL 13.5 Hct (40.0-50.0) % 40.3 MCV (80-95) fL 90.2 MCH (27.0-33.0) pg 30.2 MCHC (32.0-36.0) % 33.5 RDW (11.8-14.1) % 13.0 Plt Count (130-400) 10^3/uL 202 MPV (8.0-11.0) fL 9.8 Immature Gran % 0.3 Neutrophils % 64.0 Lymphocytes % 23.1 Monocytes % 10.4 Eosinophils % 1.9 Basophils % 0.3 Nucleated RBC % % 0 Absolute Neutrophils (1.2-6.7) 10^3/uL 3.73 Absolute Lymphocytes (1.2-3.4) 10^3/uL 1.35 Absolute Monocytes (0.1-0.8) 10^3/uL 0.61 Absolute Eosinophils (0.0-0.7) 10^3/uL 0.11 Absolute Basophils (0.0-0.2) 10^3/uL 0.02 PT (9.3-11.0) sec INR (0.9-1.1) APTT (21.0-27.5) sec VBG Lactate (0.6-1.4) mmol/L 1.2 Sodium (136-145) mmol/L 138 Potassium (3.5-5.1) mmol/L 3.9 Chloride (98-107) mmol/L 102 Carbon Dioxide (21.0-32.0) mmol/L 27.5 Anion Gap (3-11) mmol/L 8.5 BUN (7-18) mg/dL 13 Creatinine (0.70-1.30) mg/dL 0.9 Estimated GFR/1.73 m2 (mL/min/1.73m2) >= 60.00 Glucose (74-106) mg/dL 130 H Calcium (8.5-10.1) mg/dL 9.0 Magnesium (1.8-2.4) mg/dL 2.1 Total Bilirubin (0.2-1.0) mg/dL 0.4 AST (15-37) U/L 13 L ALT (16-63) U/L 19 Alkaline Phosphatase (46-116) U/L 76 Total Protein (6.4-8.2) g/dL 7.4 Albumin (3.4-5.0) g/dL 3.6 Lipase (73-393) U/L 72 TSH (0.36-3.74) uIU/mL 1.13 Urine Color (Yellow) Urine Clarity (Clear) Urine pH (5-8) Ur Specific [place] (1.005-1.025) Urine Protein (Negative) mg/dL Urine Ketones (Negative) mg/dL Urine Blood (Negative) Urine Nitrite (Negative) Urine Bilirubin (Negative) Urine Urobilinogen (Up TO 0.2) EU/dL Ur Leukocyte Esterase (Negative) Urine Glucose (Negative) mg/dL Stool Description Stool Campylobacter PCR (Negative) Stl C.difficile Tox PCR (Negative) Stool Salmonella PCR (Negative) Stool Shigella PCR (Negative) Stool Ova & Parasites Cryptosporidium/Giardia ((See Note)) Shiga Toxin (PCR) (Negative) Range/Units 05/20/21 05/20/21 05/20/21 10:15 11:15 12:20 WBC (4.4-10.8) 10^3/uL RBC (4.36-5.78) 10^6/uL Hgb (13.5-17.5) g/dL Hct (40.0-50.0) % MCV (80-95) fL MCH (27.0-33.0) pg MCHC (32.0-36.0) % RDW (11.8-14.1) % Plt Count (130-400) 10^3/uL MPV (8.0-11.0) fL Immature Gran % Neutrophils % Lymphocytes % Monocytes % Eosinophils % Basophils % Nucleated RBC % % Absolute Neutrophils (1.2-6.7) 10^3/uL Absolute Lymphocytes (1.2-3.4) 10^3/uL Absolute Monocytes (0.1-0.8) 10^3/uL Absolute Eosinophils (0.0-0.7) 10^3/uL Absolute Basophils (0.0-0.2) 10^3/uL PT (9.3-11.0) sec 10.5 INR (0.9-1.1) 1.0 APTT (21.0-27.5) sec 26.3 VBG Lactate (0.6-1.4) mmol/L Sodium (136-145) mmol/L Potassium (3.5-5.1) mmol/L Chloride (98-107) mmol/L Carbon Dioxide (21.0-32.0) mmol/L Anion Gap (3-11) mmol/L BUN (7-18) mg/dL Creatinine (0.70-1.30) mg/dL Estimated GFR/1.73 m2 (mL/min/1.73m2) Glucose (74-106) mg/dL Calcium (8.5-10.1) mg/dL Magnesium (1.8-2.4) mg/dL Total Bilirubin (0.2-1.0) mg/dL AST (15-37) U/L ALT (16-63) U/L Alkaline Phosphatase (46-116) U/L Total Protein (6.4-8.2) g/dL Albumin (3.4-5.0) g/dL Lipase (73-393) U/L TSH (0.36-3.74) uIU/mL Urine Color (Yellow) Yellow Urine Clarity (Clear) Clear Urine pH (5-8) 6.0 Ur Specific [place] (1.005-1.025) 1.020 Urine Protein (Negative) mg/dL Negative Urine Ketones (Negative) mg/dL Negative Urine Blood (Negative) Negative Urine Nitrite (Negative) Negative Urine Bilirubin (Negative) Negative Urine Urobilinogen (Up TO 0.2) EU/dL 0.2 Ur Leukocyte Esterase (Negative) Negative Urine Glucose (Negative) mg/dL Negative Stool Description Stool Campylobacter PCR (Negative) Stl C.difficile Tox PCR (Negative) Negative Stool Salmonella PCR (Negative) Stool Shigella PCR (Negative) Stool Ova & Parasites Cryptosporidium/Giardia ((See Note)) Shiga Toxin (PCR) (Negative) Range/Units 05/20/21 05/20/21 12:20 12:20 WBC (4.4-10.8) 10^3/uL RBC (4.36-5.78) 10^6/uL Hgb (13.5-17.5) g/dL Hct (40.0-50.0) % MCV (80-95) fL MCH (27.0-33.0) pg MCHC (32.0-36.0) % RDW (11.8-14.1) % Plt Count (130-400) 10^3/uL MPV (8.0-11.0) fL Immature Gran % Neutrophils % Lymphocytes % Monocytes % Eosinophils % Basophils % Nucleated RBC % % Absolute Neutrophils (1.2-6.7) 10^3/uL Absolute Lymphocytes (1.2-3.4) 10^3/uL Absolute Monocytes (0.1-0.8) 10^3/uL Absolute Eosinophils (0.0-0.7) 10^3/uL Absolute Basophils (0.0-0.2) 10^3/uL PT (9.3-11.0) sec INR (0.9-1.1) APTT (21.0-27.5) sec VBG Lactate (0.6-1.4) mmol/L Sodium (136-145) mmol/L Potassium (3.5-5.1) mmol/L Chloride (98-107) mmol/L Carbon Dioxide (21.0-32.0) mmol/L Anion Gap (3-11) mmol/L BUN (7-18) mg/dL Creatinine (0.70-1.30) mg/dL Estimated GFR/1.73 m2 (mL/min/1.73m2) Glucose (74-106) mg/dL Calcium (8.5-10.1) mg/dL Magnesium (1.8-2.4) mg/dL Total Bilirubin (0.2-1.0) mg/dL AST (15-37) U/L ALT (16-63) U/L Alkaline Phosphatase (46-116) U/L Total Protein (6.4-8.2) g/dL Albumin (3.4-5.0) g/dL Lipase (73-393) U/L TSH (0.36-3.74) uIU/mL Urine Color (Yellow) Urine Clarity (Clear) Urine pH (5-8) Ur Specific [place] (1.005-1.025) Urine Protein (Negative) mg/dL Urine Ketones (Negative) mg/dL Urine Blood (Negative) Urine Nitrite (Negative) Urine Bilirubin (Negative) Urine Urobilinogen (Up TO 0.2) EU/dL Ur Leukocyte Esterase (Negative) Urine Glucose (Negative) mg/dL Stool Description Not Applicable Stool Campylobacter PCR (Negative) Negative Stl C.difficile Tox PCR (Negative) Stool Salmonella PCR (Negative) Negative Stool Shigella PCR (Negative) Negative Stool Ova & Parasites SEE BELOW Cryptosporidium/Giardia ((See Note)) SEE BELOW Shiga Toxin (PCR) (Negative) Negative HPI General Date/Time Provider Initiated Documentation: 05/20/21 10:13 . Limitations to Documentation: no limitations . Information obtained by: patient, family, RN notes reviewed and old records reviewed . HPI Narrative: Nicholas Golden is a 75-year-old man with a history of paroxysmal atrial fibrillation on apixaban status post pacemaker, hyperlipidemia, hypertension, pancreatic cancer diagnosed 04/30 with chemotherapy initiated 05/09/2021 presenting to emergency department with diarrhea. Patient reports that he has received 1 infusion of chemotherapy. He reports that several days after infusi on he developed watery diarrhea. Patient reports that this has been ongoing every day and seems to be getting worse in the past 2 to 3 days. Patient also reports that he had sharp abdominal cramping with diarrhea this morning which was new, also reports that there was small amount of bright red blood mixed in with stool this morning. Patient reports that stool has been normal light brown-colored. No black or dark stool. Patient reports that abdominal pain was in the lower abdomen, has improved and is mild point. He reports that he has had a good appetite and has been eating and drinking fluids fairly well. He denies fever, cough, shortness of breath, vomiting, numbness, weakness, rash. Cancer center had called prior to alert of patient's arrival to the ED, they had noted that diarrhea is a side effect of patient's chemotherapy, noted that they were concerned about dehydration and possible electrolyte imbalance. Related Data Home Medications Medication Instructions Recorded Confirmed ibuprofen 800 mg tablet 800 mg PO BID-TID PRN #90 tab 05/25/18 05/20/21 cyclobenzaprine 5 mg tablet 5 mg PO TID PRN #30 tab-cap 08/20/18 01/31/20 lidocaine 5 % topical cream 1 applic TOPICAL QID PRN #30 g 11/09/19 05/20/21 needle (disp) 18 G 18 gauge x 1 #100 ea 12/02/19 01/31/20 (BD Regular [place]vel [place]) cyanocobalamin (vitamin B-12) 1,000 mcg IM .q14 #25 ml 04/24/20 05/20/21 1,000 mcg/mL injection solution syringe with needle 3 mL 25 gauge #100 ea 04/24/20 04/24/20 x 1 (Syringe) apixaban 5 mg tablet 5 mg PO BID #180 tab 10/18/20 05/20/21 amlodipine 5 mg tablet 5 mg PO DAILY #90 tab 12/13/20 05/20/21 dofetilide 250 mcg capsule 250 mcg PO Q12H #180 cap 01/01/21 05/20/21 loperamide 2 mg tablet (Imodium 2 mg PO Q6H PRN 05/06/21 05/20/21 A-D) lorazepam 0.5 mg tablet 0.5 mg PO Q6H PRN tab 05/06/21 05/20/21 polyethylene glycol 3350 17 17 g PO DAILY PRN 05/06/21 gram/dose oral powder (Miralax) lidocaine HCl 2 % mucosal solution 05/20/21 05/20/21 (Lidocaine Viscous) olanzapine 5 mg tablet 5 mg PO QHS 05/20/21 05/20/21 oxycodone 5 mg tablet 5 mg PO Q4H 05/20/21 05/20/21 tramadol 50 mg tablet 50 mg PO Q6H 05/20/21 05/20/21 Previous Rx's Medication Instructions Recorded ibuprofen 800 mg tablet 800 mg PO BID-TID PRN #90 tab 05/25/18 cyclobenzaprine 5 mg tablet 5 mg PO TID PRN #30 tab-cap 08/20/18 lidocaine 5 % topical cream 1 applic TOPICAL QID PRN #30 g 11/09/19 needle (disp) 18 G 18 gauge x 1 #100 ea 12/02/19 (BD Regular [place]vel [place]) cyanocobalamin (vitamin B-12) 1,000 mcg IM .q14 #25 ml 04/24/20 1,000 mcg/mL injection solution syringe with needle 3 mL 25 gauge #100 ea 04/24/20 x 1 (Syringe) apixaban 5 mg tablet 5 mg PO BID #180 tab 10/18/20 amlodipine 5 mg tablet 5 mg PO DAILY #90 tab 12/13/20 dofetilide 250 mcg capsule 250 mcg PO Q12H #180 cap 01/01/21 Allergies Allergy/AdvReac Type Severity Reaction Status Date / Time finasteride AdvReac Intermediate depression Verified 05/20/21 09:56 General Stated Complaint: Abd Prob AVA: 3 Review of Systems Narrative: Constitutional: denies fevers Eyes: denies eye pain ENT: denies ear pain, dental pain, sore throat Cardiovascular: denies chest pain, edema Respiratory: denies SOB, cough GI: denies vomiting, reports abdominal pain, diarrhea, blood in stool : denies flank pain, dysuria, urinary frequency/hesitation MSK: denies back pain, neck pain, arthralgias, myalgias Skin: denies rash Neuro: denies headaches, numbness, weakness PFSH All Active Problems (Updated 05/20/21 @ 13:55 by Mae Valdez MD) Diarrhea (Acute) Pancreatic cancer (Acute 04/22/21) 04/30/21 [facility] [place] - Malignant neoplasm of body of pancreas Pancreatic mass (Acute) Left flank pain (Acute) Injury of right hand (Acute) Chest pain on exertion (Acute) Hiatal hernia (Chronic) 03/05/20 [facility]. 45-43 cm from teeth Iron deficiency (Acute) Seborrheic keratosis (Acute) 01/19/20 Derm: Hammer left lower eyelid BCC (basal cell carcinoma of skin) (Acute) 07/2019 left medial ankle nodular type with squamous features. Derm: Hammer Essential tremor (Acute) Tubular adenoma of colon (Chronic 07/07/19) Adelso Mcclain DO [facility] Benign prostatic hyperplasia (Acute 02/20/17) Erectile dysfunction (Acute 02/20/17) Hyperlipidemia (Acute 02/20/17) 10 yr cardiovascular risk factor 9%, will to to 7% if on med Osteoarthritis (Acute 02/20/17) Paroxysmal A-fib (Acute 02/20/17) s/p 3 ablations (2 [facility] 2013) and cardioversion 2007 maintained on Flecainideecho 08/06/07- nl EF 67%, enlarge rgt, left atrium and right ventricle NM perfusion scan 03/12/10, normal labs 09/19 nl CMP, mild normoc S/P Pacemaker 03/29/13 Carpal tunnel syndrome of right wrist (Acute) Vitamin B12 deficiency (Acute) Peripheral neuropathy (Acute) Actinic keratosis (Acute) GOODWIN (dyspnea on exertion) (Acute) Pernicious anemia (Acute) Symptoms of neuropathy, + intrinsic factor in 2019 Essential hypertension (Acute) Atrial fibrillation and flutter (Acute ~08/2018) [facility] discharge report. 08/16/18 Left knee pain (Acute 02/20/17) Medical History (Updated 05/20/21 @ 13:55 by Mae Valdez MD) Depression Surgical History (Updated 03/08/20 @ 12:23 by Cheyenne Hawkins RN) H/O cardiac radiofrequency ablation History of esophagogastroduodenoscopy (EGD) 03/05/20 multiple biopsies. awaiting path Pacemaker (03/29/13) [facility]I Pacer Family History Mother Neoplasm Some form of Leukemia/Myeloma Father Heart disease Brother Hodgkins disease Social History Smoking/Tobacco Use Status: Never Smoking risk assessment performed?: Yes Alcohol Intake: former Drug use: Never Substance use type: does not use Household members: spouse Number of Children: 3 number of grandchildren: 4 Education Level: master's degree current occupation: Group Exercise Instructor Pets and animals: Yes Pets and animals: cat(s) What is your relationship status?: Panel score (0-1 are the most socially isolated patients): 1 What type of physical activity do you participate in: regular exercise Duration: 30-45 minutes/day Frequency: 5-6 times per week Seatbelt use: always Helmet use: Yes Drive intox or ride w/intox stock driver: Yes Working smoke detector in home: Yes Fire extinguisher in home: Yes Carbon monox detector in home: Yes Do you feel safe at home: Yes Do you feel safe in your relationship?: Yes Exam Narrative Exam Narrative: Constitutional: well and [id number], pleasant, conversing normally HENT: head atraumatic/normocephalic/normal inspection, mucous membranes moist Eyes: conjunctiva normal, sclera normal, pupils 3mm b/l Neck: no stridor, normal ROM, trachea midline Chest: normal inspection Resp: normal work of breathing, LCTAB Cardio: normal rate, normal rhythm, no murmur appreciated GI: abdomen soft, bowel mild tenderness palpation across lower abdomen, no rebound, no guarding, no focal McBurney's point tenderness to palpation, non- distended Back: normal inspection, no rash Skin: warm, dry, normal color, no rash Neuro: alert, not altered, grossly non-focal, normal tone Ext: no edema, no posterior calf tenderness to palpation Psych: normal mood, normal affect, normal behavior Course Vital Signs Vital signs: Vital Signs Temperature 36.6 C 05/20/21 09:48 Pulse 72 05/20/21 09:48 Respiratory Rate 16 05/20/21 09:48 Blood Pressure 138/81 05/20/21 09:48 Pulse Oximetry 97 05/20/21 09:48 Temperature 36.6 C 05/20/21 09:48 Temperature Source Skin 05/20/21 09:48 Pulse 72 05/20/21 09:48 Respiratory Rate 16 05/20/21 09:48 Respiratory Effort 05/20/21 09:53 Blood Pressure 138/81 05/20/21 09:48 Blood Pressure Position Sitting 05/20/21 09:48 Pulse Oximetry 97 05/20/21 09:48 Oxygen Delivery Method Room Air 05/20/21 09:48 Oxygen Flow Rate 0 05/20/21 09:48 Pain Level 3 05/20/21 09:48 Lab/Test Results Lab/Test Results: Laboratory Tests Range/Units 05/20/21 05/20/21 10:15 10:15 WBC (4.4-10.8) 10^3/uL 5.84 RBC (4.36-5.78) 10^6/uL 4.47 Hgb (13.5-17.5) g/dL 13.5 Hct (40.0-50.0) % 40.3 MCV (80-95) fL 90.2 MCH (27.0-33.0) pg 30.2 MCHC (32.0-36.0) % 33.5 RDW (11.8-14.1) % 13.0 Plt Count (130-400) 10^3/uL 202 MPV (8.0-11.0) fL 9.8 Immature Gran % 0.3 Neutrophils % 64.0 Lymphocytes % 23.1 Monocytes % 10.4 Eosinophils % 1.9 Basophils % 0.3 Nucleated RBC % % 0 Absolute Neutrophils (1.2-6.7) 10^3/uL 3.73 Absolute Lymphocytes (1.2-3.4) 10^3/uL 1.35 Absolute Monocytes (0.1-0.8) 10^3/uL 0.61 Absolute Eosinophils (0.0-0.7) 10^3/uL 0.11 Absolute Basophils (0.0-0.2) 10^3/uL 0.02 VBG Lactate (0.6-1.4) mmol/L 1.2
[2021-05-20] MEDS: Normal Saline 1,000 ML 1000 ML IV (10:57)
[2021-05-20 10:58] LABS: ALT 19 U/L (16-63); AST 13 U/L (15-37); Albumin 3.6 g/dL (3.4-5.0); Alkaline Phosphatase 76 U/L (46-116); Anion Gap 8.5 mmol/L (3-11); BUN 13 mg/dL (7-18); Bilirubin, Total 0.4 mg/dL (0.2-1.0); CO2 27.5 mmol/L (21.0-32.0); CREATININE 0.9 mg/dL (0.70-1.30); Chloride 102 mmol/L (98-107); Glucose 130 mg/dL (74-106); Lipase 72 U/L (73-393); Magnesium 2.1 mg/dL (1.8-2.4); Potassium 3.9 mmol/L (3.5-5.1); Sodium 138 mmol/L (136-145); TSH (W/Ref FT4) 1.13 uIU/mL (0.36-3.74); Total Protein 7.4 g/dL (6.4-8.2)
[2021-05-20 11:24] LABS: Bilirubin Negative (Negative); Blood Negative (Negative); Clarity Clear (Clear); Glucose Negative (Negative); Ketones Negative (Negative); Leukocyte Esterase Negative (Negative); Nitrite Negative (Negative); Urobilinogen 0.2 EU/dL (Up TO 0.2)
[2021-05-20 11:34] LABS: PTT Activated 26.3 sec (21.0-27.5); Prothrombin Time 10.5 sec (9.3-11.0)
[2021-05-20 13:53] LABS: C Diff PCR Negative (Negative)
[2021-05-21 12:22] LABS: Campylobacter PCR Negative (Negative); Salmonella PCR Negative (Negative); Shiga Toxin PCR Negative (Negative); Shigella/Enteroinvasive Ecoli Negative (Negative)
== END 2021-05-20 13:58 | disposition home or self-care (01) ==
PROVIDERS: Emergency Provider Student in an Organized Health Care Education/Training Program; PCP Family Medicine
DX: R19.7 Diarrhea, unspecified (principal); I48.0 Paroxysmal atrial fibrillation; C25.9 Malignant neoplasm of pancreas, unspecified; R10.9 Unspecified abdominal pain
CPT/HCPCS: 36415; 80053; 83690; 87329; 87493; 87505; 96360; 99284; 81003; 83605; 83735; 84443; 85025; 85610; 85730; 87177; 99283

== ENCOUNTER 2021-05-29 02:11 | Outpatient (RCR) | payer MEDICARE, BC, SELFPAY ==
[2021-05-29] MEDS: Normal Saline Flush 10 ML SYR IVP (07:50)
[2021-05-29 08:03] LABS: Abs Immature Grans 0.03 10^3/uL (0.0-0.06); Absolute Basophil Count 0.03 10^3/uL (0.0-0.2); Absolute Lymphocyte Count 2.06 10^3/uL (1.2-3.4); Absolute Monocyte Count 0.88 10^3/uL (0.1-0.8); Absolute Neutrophil Count 2.83 10^3/uL (1.2-6.7); Basophils % 0.5; Eosinophils % 3.3; HCT 40.4 % (40.0-50.0); HGB 13.1 g/dL (13.5-17.5); Immature Grans % 0.5; Lymphocytes % 34.2; MCH 29.4 pg (27.0-33.0); MCHC 32.4 % (32.0-36.0); MCV 90.8 fL (80-95); MPV 9.5 fL (8.0-11.0); Monocytes % 14.6; Neutrophils % 46.9; Platelet Count 265 10^3/uL (130-400); RBC 4.45 10^6/uL (4.36-5.78); RDW 13.1 % (11.8-14.1); RDW-SD 43.5 fL; WBC 6.03 10^3/uL (4.4-10.8)
[2021-05-29 08:14] LABS: ALT 27 U/L (16-63); AST 23 U/L (15-37); Albumin 3.5 g/dL (3.4-5.0); Alkaline Phosphatase 81 U/L (46-116); Anion Gap 6.7 mmol/L (3-11); BUN 13 mg/dL (7-18); Bilirubin, Total 0.3 mg/dL (0.2-1.0); CO2 27.3 mmol/L (21.0-32.0); Calcium 8.8 mg/dL (8.5-10.1); Chloride 104 mmol/L (98-107); Glucose 106 mg/dL (74-106); Potassium 3.8 mmol/L (3.5-5.1); Sodium 138 mmol/L (136-145); Total Protein 7.6 g/dL (6.4-8.2)
[2021-05-31 10:23] LABS: CA 19-9 462 U/mL (<35)
== END 2021-06-08 23:59 | disposition home or self-care (01) ==
LOC: INF 02:11
PROVIDERS: PCP Family Medicine; Visit Provider Internal Medicine Hematology & Oncology
DX: C25.1 Malignant neoplasm of body of pancreas (principal); Z45.2 Encounter for adjustment and management of vascular access device
CPT/HCPCS: 36591; 80053; 85025; 86301

== ENCOUNTER 2021-06-30 12:15 | Outpatient (RCR) | payer MEDICARE, BC, SELFPAY ==
[2021-06-14] MEDS: Normal Saline Flush 10 ML SYR IVP (08:16)
[2021-06-14 08:28] LABS: Abs Immature Grans 0.02 10^3/uL (0.0-0.06); Absolute Basophil Count 0.02 10^3/uL (0.0-0.2); Absolute Eosinophil Count 0.16 10^3/uL (0.0-0.7); Absolute Lymphocyte Count 1.04 10^3/uL (1.2-3.4); Absolute Monocyte Count 0.76 10^3/uL (0.1-0.8); Absolute Neutrophil Count 2.67 10^3/uL (1.2-6.7); Basophils % 0.4; Eosinophils % 3.4; HCT 36.8 % (40.0-50.0); HGB 12.1 g/dL (13.5-17.5); Immature Grans % 0.4; Lymphocytes % 22.3; MCH 29.7 pg (27.0-33.0); MCHC 32.9 % (32.0-36.0); MCV 90 fL (80-95); MPV 9.9 fL (8.0-11.0); Monocytes % 16.3; Neutrophils % 57.2; Platelet Count 187 10^3/uL (130-400); RBC 4.08 10^6/uL (4.36-5.78); RDW 13.9 % (11.8-14.1); RDW-SD 46.1 fL; WBC 4.67 10^3/uL (4.4-10.8)
[2021-06-14 08:41] LABS: ALT 25 U/L (16-63); AST 15 U/L (15-37); Albumin 3.5 g/dL (3.4-5.0); Alkaline Phosphatase 99 U/L (46-116); Anion Gap 6.4 mmol/L (3-11); BUN 14 mg/dL (7-18); Bilirubin, Total 0.3 mg/dL (0.2-1.0); CO2 28.6 mmol/L (21.0-32.0); Calcium 8.5 mg/dL (8.5-10.1); Chloride 106 mmol/L (98-107); Glucose 105 mg/dL (74-106); Potassium 3.9 mmol/L (3.5-5.1); Sodium 141 mmol/L (136-145)
[2021-06-16 13:08] VITALS: BP 156/75; PULSE 76; RESP 16; TEMP 36.6; O2SAT 99
[2021-06-16] MEDS: Heparin 500 UNITS/5 ML SYRINGE IV (13:22)
[2021-06-16] MEDS: Normal Saline Flush 10 ML SYR IVP (13:22)
[2021-06-16] MEDS: Normal Saline 1,000 ML 500 ML IV (13:23)
[2021-06-18 08:57] LABS: CA 19-9 285 U/mL (<35)
[2021-06-28] MEDS: Normal Saline Flush 10 ML SYR IVP (08:18)
[2021-06-28 08:19] LABS: Abs Immature Grans 0.01 10^3/uL (0.0-0.06); Absolute Basophil Count 0.02 10^3/uL (0.0-0.2); Absolute Eosinophil Count 0.24 10^3/uL (0.0-0.7); Absolute Lymphocyte Count 1.58 10^3/uL (1.2-3.4); Absolute Monocyte Count 0.56 10^3/uL (0.1-0.8); Absolute Neutrophil Count 1.43 10^3/uL (1.2-6.7); Basophils % 0.5; Eosinophils % 6.3; HCT 36.6 % (40.0-50.0); Immature Grans % 0.3; Lymphocytes % 41.1; MCH 30.2 pg (27.0-33.0); MCHC 32.8 % (32.0-36.0); MCV 92 fL (80-95); MPV 9.7 fL (8.0-11.0); Monocytes % 14.6; Neutrophils % 37.2; Platelet Count 178 10^3/uL (130-400); RBC 3.97 10^6/uL (4.36-5.78); RDW 14.1 % (11.8-14.1); WBC 3.84 10^3/uL (4.4-10.8)
[2021-06-28 08:37] LABS: ALT 28 U/L (16-63); AST 21 U/L (15-37); Albumin 3.3 g/dL (3.4-5.0); Alkaline Phosphatase 81 U/L (46-116); Anion Gap 6.3 mmol/L (3-11); BUN 12 mg/dL (7-18); Bilirubin, Total 0.4 mg/dL (0.2-1.0); CO2 26.7 mmol/L (21.0-32.0); Calcium 8.4 mg/dL (8.5-10.1); Chloride 106 mmol/L (98-107); Glucose 105 mg/dL (74-106); Potassium 3.9 mmol/L (3.5-5.1); Sodium 139 mmol/L (136-145)
[2021-06-30 12:30] VITALS: BP 152/72; PULSE 74; TEMP 36.6
[2021-06-30] MEDS: Heparin 500 UNITS/5 ML SYRINGE IV (12:39)
[2021-06-30] MEDS: Normal Saline Flush 10 ML SYR IVP (12:39)
[2021-07-01 12:35] LABS: CA 19-9 435 U/mL (<35)
== END 2021-07-09 23:59 | disposition home or self-care (01) ==
LOC: INF 12:15
PROVIDERS: PCP Family Medicine; Visit Provider Nurse Practitioner Adult Health
DX: C25.1 Malignant neoplasm of body of pancreas (principal); Z45.2 Encounter for adjustment and management of vascular access device
CPT/HCPCS: 36591; 80053; 96360; 96365; 96523; 85025; 86301

== ENCOUNTER 2021-07-26 00:57 | Outpatient (RCR) | payer MEDICARE, BC, SELFPAY ==
[2021-07-10 00:14] VITALS: BP 152/72; PULSE 74; RESP 16; TEMP 36.6
[2021-07-12 08:42] LABS: Abs Immature Grans 0.01 10^3/uL (0.0-0.06); Absolute Basophil Count 0.03 10^3/uL (0.0-0.2); Absolute Eosinophil Count 0.41 10^3/uL (0.0-0.7); Absolute Lymphocyte Count 1.54 10^3/uL (1.2-3.4); Absolute Monocyte Count 0.68 10^3/uL (0.1-0.8); Absolute Neutrophil Count 2.58 10^3/uL (1.2-6.7); Basophils % 0.6; Eosinophils % 7.8; HCT 36.2 % (40.0-50.0); HGB 11.8 g/dL (13.5-17.5); Immature Grans % 0.2; Lymphocytes % 29.3; MCH 29.9 pg (27.0-33.0); MCHC 32.6 % (32.0-36.0); MCV 92 fL (80-95); MPV 10.1 fL (8.0-11.0); Neutrophils % 49.1; Platelet Count 163 10^3/uL (130-400); RBC 3.94 10^6/uL (4.36-5.78); RDW 14.8 % (11.8-14.1); RDW-SD 48.9 fL; WBC 5.25 10^3/uL (4.4-10.8)
[2021-07-12 08:58] LABS: ALT 59 U/L (16-63); AST 42 U/L (15-37); Albumin 3.3 g/dL (3.4-5.0); Alkaline Phosphatase 93 U/L (46-116); Anion Gap 8.6 mmol/L (3-11); BUN 15 mg/dL (7-18); Bilirubin, Total 0.2 mg/dL (0.2-1.0); CO2 25.4 mmol/L (21.0-32.0); CREATININE 0.9 mg/dL (0.70-1.30); Calcium 8.7 mg/dL (8.5-10.1); Chloride 107 mmol/L (98-107); Glucose 100 mg/dL (74-106); Potassium 3.8 mmol/L (3.5-5.1); Sodium 141 mmol/L (136-145); Total Protein 6.8 g/dL (6.4-8.2)
[2021-07-12] MEDS: Normal Saline Flush 10 ML SYR IVP (08:58)
[2021-07-14 12:13] VITALS: BP 118/74; PULSE 67; RESP 18; TEMP 36.5; O2SAT 97
[2021-07-14] MEDS: Normal Saline Flush 10 ML SYR IVP (12:30)
[2021-07-14] MEDS: Heparin 500 UNITS/5 ML SYRINGE IV (12:30)
[2021-07-15 11:51] LABS: CA 19-9 415 U/mL (<35)
[2021-07-26] MEDS: Normal Saline Flush 10 ML SYR IVP (07:12)
[2021-07-26 07:20] LABS: Abs Immature Grans 0.01 10^3/uL (0.0-0.06); Absolute Basophil Count 0.03 10^3/uL (0.0-0.2); Absolute Eosinophil Count 0.37 10^3/uL (0.0-0.7); Absolute Lymphocyte Count 1.27 10^3/uL (1.2-3.4); Absolute Monocyte Count 0.66 10^3/uL (0.1-0.8); Absolute Neutrophil Count 2.32 10^3/uL (1.2-6.7); Basophils % 0.6; Eosinophils % 7.9; HCT 35.6 % (40.0-50.0); HGB 11.7 g/dL (13.5-17.5); Immature Grans % 0.2; Lymphocytes % 27.3; MCH 30.2 pg (27.0-33.0); MCHC 32.9 % (32.0-36.0); MCV 92 fL (80-95); MPV 10.1 fL (8.0-11.0); Monocytes % 14.2; Neutrophils % 49.8; Platelet Count 149 10^3/uL (130-400); RBC 3.87 10^6/uL (4.36-5.78); RDW 15.2 % (11.8-14.1); RDW-SD 50.9 fL; WBC 4.66 10^3/uL (4.4-10.8)
[2021-07-26 07:35] LABS: ALT 47 U/L (16-63); AST 42 U/L (15-37); Albumin 3.4 g/dL (3.4-5.0); Alkaline Phosphatase 93 U/L (46-116); Anion Gap 7.1 mmol/L (3-11); BUN 12 mg/dL (7-18); Bilirubin, Total 0.2 mg/dL (0.2-1.0); CO2 25.9 mmol/L (21.0-32.0); CREATININE 1.1 mg/dL (0.70-1.30); Calcium 8.3 mg/dL (8.5-10.1); Chloride 109 mmol/L (98-107); Glucose 91 mg/dL (74-106); Potassium 3.9 mmol/L (3.5-5.1); Sodium 142 mmol/L (136-145); Total Protein 6.8 g/dL (6.4-8.2)
[2021-07-28] MEDS: Heparin 500 UNITS/5 ML SYRINGE IV (11:58)
[2021-07-28] MEDS: Normal Saline Flush 10 ML SYR IVP (11:58)
[2021-07-28 11:59] VITALS: BP 134/79; PULSE 72; RESP 16; TEMP 36.3; O2SAT 96
[2021-07-29 10:03] LABS: CA 19-9 512 U/mL (<35)
== END 2021-08-08 23:59 | disposition home or self-care (01) ==
LOC: INF 00:57
PROVIDERS: PCP Family Medicine; Visit Provider Nurse Practitioner Adult Health
DX: C25.1 Malignant neoplasm of body of pancreas (principal); Z45.2 Encounter for adjustment and management of vascular access device
CPT/HCPCS: 36591; 80053; 96523; 85025; 86301

== ENCOUNTER 2021-08-23 01:05 | Outpatient (RCR) | payer MEDICARE, BC, SELFPAY ==
[2021-08-09 00:07] VITALS: BP 134/79; PULSE 72; RESP 16; TEMP 36.3
[2021-08-09] MEDS: Normal Saline Flush 10 ML SYR IVP (08:57)
[2021-08-09 09:26] LABS: Abs Immature Grans 0.01 10^3/uL (0.0-0.06); Absolute Basophil Count 0.03 10^3/uL (0.0-0.2); Absolute Eosinophil Count 0.43 10^3/uL (0.0-0.7); Absolute Lymphocyte Count 1.43 10^3/uL (1.2-3.4); Absolute Monocyte Count 0.71 10^3/uL (0.1-0.8); Absolute Neutrophil Count 2.03 10^3/uL (1.2-6.7); Basophils % 0.6; Eosinophils % 9.3; HCT 36.5 % (40.0-50.0); Immature Grans % 0.2; Lymphocytes % 30.8; MCH 30.5 pg (27.0-33.0); MCHC 32.9 % (32.0-36.0); MCV 93 fL (80-95); MPV 10.5 fL (8.0-11.0); Monocytes % 15.3; Neutrophils % 43.8; Platelet Count 148 10^3/uL (130-400); RBC 3.94 10^6/uL (4.36-5.78); RDW 15.3 % (11.8-14.1); RDW-SD 52.4 fL; WBC 4.64 10^3/uL (4.4-10.8)
[2021-08-09 09:44] LABS: ALT 53 U/L (16-63); AST 39 U/L (15-37); Albumin 3.4 g/dL (3.4-5.0); Alkaline Phosphatase 87 U/L (46-116); Anion Gap 8.9 mmol/L (3-11); BUN 15 mg/dL (7-18); Bilirubin, Total 0.4 mg/dL (0.2-1.0); CO2 25.1 mmol/L (21.0-32.0); Chloride 105 mmol/L (98-107); Glucose 110 mg/dL (74-106); Potassium 3.8 mmol/L (3.5-5.1); Sodium 139 mmol/L (136-145); Total Protein 6.9 g/dL (6.4-8.2)
[2021-08-11 13:10] VITALS: BP 126/84; PULSE 74; RESP 16; TEMP 36.8; O2SAT 97
[2021-08-11] MEDS: Normal Saline Flush 10 ML SYR IVP (13:15)
[2021-08-11] MEDS: Heparin 500 UNITS/5 ML SYRINGE IV (13:16)
[2021-08-12 09:41] LABS: CA 19-9 514 U/mL (<35)
[2021-08-23] MEDS: Normal Saline Flush 10 ML SYR IVP (08:30)
[2021-08-23 08:51] LABS: Abs Immature Grans 0.01 10^3/uL (0.0-0.06); Absolute Basophil Count 0.02 10^3/uL (0.0-0.2); Absolute Eosinophil Count 0.59 10^3/uL (0.0-0.7); Absolute Lymphocyte Count 1.45 10^3/uL (1.2-3.4); Absolute Monocyte Count 0.57 10^3/uL (0.1-0.8); Absolute Neutrophil Count 1.71 10^3/uL (1.2-6.7); Basophils % 0.5; Eosinophils % 13.6; HCT 35.5 % (40.0-50.0); HGB 11.7 g/dL (13.5-17.5); Immature Grans % 0.2; Lymphocytes % 33.3; MCV 94 fL (80-95); MPV 10.1 fL (8.0-11.0); Monocytes % 13.1; Neutrophils % 39.3; Platelet Count 148 10^3/uL (130-400); RBC 3.78 10^6/uL (4.36-5.78); RDW-SD 54.8 fL; WBC 4.35 10^3/uL (4.4-10.8)
[2021-08-23 09:05] LABS: ALT 40 U/L (16-63); AST 29 U/L (15-37); Albumin 3.3 g/dL (3.4-5.0); Alkaline Phosphatase 96 U/L (46-116); Anion Gap 8.8 mmol/L (3-11); BUN 18 mg/dL (7-18); Bilirubin, Total 0.3 mg/dL (0.2-1.0); CO2 27.2 mmol/L (21.0-32.0); Calcium 8.7 mg/dL (8.5-10.1); Chloride 109 mmol/L (98-107); Glucose 105 mg/dL (74-106); Potassium 3.9 mmol/L (3.5-5.1); Sodium 145 mmol/L (136-145); Total Protein 6.7 g/dL (6.4-8.2)
[2021-08-23 10:46] VITALS: BP 126/84; PULSE 74; RESP 16; TEMP 36.8; O2SAT 97
[2021-08-25] MEDS: Heparin 500 UNITS/5 ML SYRINGE IV (13:20)
[2021-08-25] MEDS: Normal Saline Flush 10 ML SYR IVP (13:20)
[2021-08-25 17:30] VITALS: BP 125/62; PULSE 79; RESP 16; TEMP 37.1; O2SAT 98
[2021-08-26 12:56] LABS: CA 19-9 351 U/mL (<35)
== END 2021-09-08 23:59 | disposition home or self-care (01) ==
LOC: INF 01:05
PROVIDERS: PCP Family Medicine; Visit Provider Nurse Practitioner Adult Health
DX: C25.1 Malignant neoplasm of body of pancreas (principal); Z45.2 Encounter for adjustment and management of vascular access device
CPT/HCPCS: 36591; 80053; 96523; 85025; 86301

== ENCOUNTER 2021-09-30 17:04 | Outpatient (REF) | payer MEDICARE, BC, SELFPAY ==
[2021-10-02 14:29] LABS: COVID-19 RT-PCR UVMMC Result Positive (Negative)
== END 2021-09-30 17:05 | disposition home or self-care (01) ==
LOC: LBN 17:04
PROVIDERS: PCP Family Medicine; Referring Provider Family Medicine; Visit Provider Family Medicine
DX: Z20.822 Contact with and (suspected) exposure to COVID-19 (principal)
CPT/HCPCS: U0003; U0005

== ENCOUNTER 2021-10-04 00:50 | Outpatient (RCR) | payer MEDICARE, BC, SELFPAY ==
[2021-09-09 00:18] VITALS: BP 125/62; PULSE 79; RESP 16; TEMP 37.1
[2021-09-13] MEDS: Heparin 500 UNITS/5 ML SYRINGE IV (12:40)
[2021-09-13] MEDS: Normal Saline Flush 10 ML SYR IVP (12:40)
[2021-09-13 12:45] LABS: Abs Immature Grans 0.01 10^3/uL (0.0-0.06); Absolute Basophil Count 0.03 10^3/uL (0.0-0.2); Absolute Eosinophil Count 0.26 10^3/uL (0.0-0.7); Absolute Lymphocyte Count 1.86 10^3/uL (1.2-3.4); Absolute Neutrophil Count 2.02 10^3/uL (1.2-6.7); Basophils % 0.6; Eosinophils % 5.1; HCT 36.8 % (40.0-50.0); Immature Grans % 0.2; Lymphocytes % 36.6; MCH 30.7 pg (27.0-33.0); MCHC 32.6 % (32.0-36.0); MCV 94 fL (80-95); MPV 10.1 fL (8.0-11.0); Monocytes % 17.7; Neutrophils % 39.8; Platelet Count 163 10^3/uL (130-400); RBC 3.91 10^6/uL (4.36-5.78); RDW 15.8 % (11.8-14.1); RDW-SD 54.4 fL; WBC 5.08 10^3/uL (4.4-10.8)
[2021-09-13 13:02] LABS: ALT 43 U/L (16-63); AST 33 U/L (15-37); Albumin 3.6 g/dL (3.4-5.0); Alkaline Phosphatase 93 U/L (46-116); Anion Gap 5.3 mmol/L (3-11); BUN 12 mg/dL (7-18); Bilirubin, Total 0.3 mg/dL (0.2-1.0); CO2 28.7 mmol/L (21.0-32.0); Calcium 8.8 mg/dL (8.5-10.1); Chloride 104 mmol/L (98-107); Glucose 116 mg/dL (74-106); Potassium 3.9 mmol/L (3.5-5.1); Sodium 138 mmol/L (136-145); Total Protein 7.1 g/dL (6.4-8.2)
[2021-09-16 11:20] LABS: CA 19-9 579 U/mL (<35)
[2021-09-27] MEDS: Normal Saline Flush 10 ML SYR IVP (10:15)
[2021-09-27] MEDS: Heparin 500 UNITS/5 ML SYRINGE IV (10:15)
[2021-09-27 10:21] LABS: Abs Immature Grans 0.01 10^3/uL (0.0-0.06); Absolute Basophil Count 0.01 10^3/uL (0.0-0.2); Absolute Eosinophil Count 0.16 10^3/uL (0.0-0.7); Absolute Monocyte Count 0.52 10^3/uL (0.1-0.8); Basophils % 0.2; Eosinophils % 3.3; HCT 37.5 % (40.0-50.0); HGB 12.7 g/dL (13.5-17.5); Immature Grans % 0.2; Lymphocytes % 16.7; MCH 31.3 pg (27.0-33.0); MCHC 33.9 % (32.0-36.0); MCV 92 fL (80-95); MPV 10.3 fL (8.0-11.0); Monocytes % 10.8; Neutrophils % 68.8; Platelet Count 154 10^3/uL (130-400); RBC 4.06 10^6/uL (4.36-5.78)
[2021-09-27 10:42] LABS: ALT 31 U/L (16-63); AST 24 U/L (15-37); Albumin 3.5 g/dL (3.4-5.0); Alkaline Phosphatase 82 U/L (46-116); Anion Gap 6.5 mmol/L (3-11); BUN 10 mg/dL (7-18); Bilirubin, Total 0.5 mg/dL (0.2-1.0); CO2 28.5 mmol/L (21.0-32.0); CREATININE 0.9 mg/dL (0.70-1.30); Calcium 8.5 mg/dL (8.5-10.1); Chloride 108 mmol/L (98-107); Glucose 128 mg/dL (74-106); Sodium 143 mmol/L (136-145); Total Protein 7.1 g/dL (6.4-8.2)
[2021-09-30 12:05] LABS: CA 19-9 495 U/mL (<35)
[2021-10-04] MEDS: Heparin 500 UNITS/5 ML SYRINGE IV (13:59)
[2021-10-04] MEDS: Normal Saline Flush 10 ML SYR IVP (13:59)
[2021-10-04 14:13] LABS: Abs Immature Grans 0.01 10^3/uL (0.0-0.06); Absolute Basophil Count 0.01 10^3/uL (0.0-0.2); Absolute Eosinophil Count 0.19 10^3/uL (0.0-0.7); Absolute Lymphocyte Count 0.52 10^3/uL (1.2-3.4); Absolute Monocyte Count 0.47 10^3/uL (0.1-0.8); Absolute Neutrophil Count 2.43 10^3/uL (1.2-6.7); Basophils % 0.3; Eosinophils % 5.2; HCT 35.6 % (40.0-50.0); HGB 11.7 g/dL (13.5-17.5); Immature Grans % 0.3; Lymphocytes % 14.3; MCH 31.3 pg (27.0-33.0); MCHC 32.9 % (32.0-36.0); MCV 95 fL (80-95); Monocytes % 12.9; Platelet Count 162 10^3/uL (130-400); RBC 3.74 10^6/uL (4.36-5.78); RDW 14.7 % (11.8-14.1); RDW-SD 50.8 fL; WBC 3.63 10^3/uL (4.4-10.8)
[2021-10-04 14:23] LABS: ALT 27 U/L (16-63); AST 24 U/L (15-37); Albumin 3.3 g/dL (3.4-5.0); Alkaline Phosphatase 70 U/L (46-116); Anion Gap 7.7 mmol/L (3-11); BUN 13 mg/dL (7-18); Bilirubin, Total 0.4 mg/dL (0.2-1.0); CO2 28.3 mmol/L (21.0-32.0); CREATININE 0.7 mg/dL (0.70-1.30); Calcium 8.3 mg/dL (8.5-10.1); Chloride 107 mmol/L (98-107); Glucose 104 mg/dL (74-106); Sodium 143 mmol/L (136-145); Total Protein 7.3 g/dL (6.4-8.2)
== END 2021-10-09 23:59 | disposition home or self-care (01) ==
LOC: INF 00:50
PROVIDERS: PCP Family Medicine; Visit Provider Nurse Practitioner Adult Health
DX: C25.1 Malignant neoplasm of body of pancreas (principal); Z45.2 Encounter for adjustment and management of vascular access device
CPT/HCPCS: 36591; 80053; 85025; 86301

== ENCOUNTER 2021-10-25 01:07 | Outpatient (RCR) | payer MEDICARE, BC, SELFPAY ==
[2021-10-10 00:08] VITALS: BP 125/62; PULSE 79; RESP 16; TEMP 37.1
[2021-10-11] MEDS: Normal Saline Flush 10 ML SYR IVP (10:17)
[2021-10-11] MEDS: Heparin 500 UNITS/5 ML SYRINGE IV (10:18)
[2021-10-11 10:31] LABS: Abs Immature Grans 0.02 10^3/uL (0.0-0.06); Absolute Basophil Count 0.01 10^3/uL (0.0-0.2); Absolute Eosinophil Count 0.13 10^3/uL (0.0-0.7); Absolute Lymphocyte Count 0.17 10^3/uL (1.2-3.4); Absolute Monocyte Count 0.82 10^3/uL (0.1-0.8); Absolute Neutrophil Count 3.59 10^3/uL (1.2-6.7); Basophils % 0.2; Eosinophils % 2.7; HGB 12.1 g/dL (13.5-17.5); Immature Grans % 0.4; Lymphocytes % 3.6; MCH 31.5 pg (27.0-33.0); MCHC 33.6 % (32.0-36.0); MCV 94 fL (80-95); MPV 9.8 fL (8.0-11.0); Monocytes % 17.3; Neutrophils % 75.8; Platelet Count 175 10^3/uL (130-400); RBC 3.84 10^6/uL (4.36-5.78); RDW-SD 47.3 fL; WBC 4.74 10^3/uL (4.4-10.8)
[2021-10-11 10:47] LABS: ALT 26 U/L (16-63); AST 22 U/L (15-37); Albumin 3.6 g/dL (3.4-5.0); Alkaline Phosphatase 65 U/L (46-116); Anion Gap 7.2 mmol/L (3-11); BUN 15 mg/dL (7-18); Bilirubin, Total 0.3 mg/dL (0.2-1.0); CO2 28.8 mmol/L (21.0-32.0); CREATININE 0.9 mg/dL (0.70-1.30); Calcium 8.9 mg/dL (8.5-10.1); Chloride 106 mmol/L (98-107); Estimated GFR 90.18 (mL/min/1.73m2); Glucose 111 mg/dL (74-106); Potassium 4.4 mmol/L (3.5-5.1); Sodium 142 mmol/L (136-145); Total Protein 7.5 g/dL (6.4-8.2)
[2021-10-11 15:13] LABS: Vitamin B12 1323 pg/mL (193-986)
[2021-10-18] MEDS: Normal Saline Flush 10 ML SYR IVP (11:11)
[2021-10-18] MEDS: Heparin 500 UNITS/5 ML SYRINGE IV (11:11)
[2021-10-18 11:23] LABS: Abs Immature Grans 0.01 10^3/uL (0.0-0.06); Absolute Basophil Count 0.01 10^3/uL (0.0-0.2); Absolute Lymphocyte Count 0.25 10^3/uL (1.2-3.4); Absolute Monocyte Count 0.61 10^3/uL (0.1-0.8); Absolute Neutrophil Count 2.57 10^3/uL (1.2-6.7); Basophils % 0.3; Eosinophils % 2.8; HCT 37.4 % (40.0-50.0); HGB 12.9 g/dL (13.5-17.5); Immature Grans % 0.3; MCH 31.8 pg (27.0-33.0); MCHC 34.5 % (32.0-36.0); MCV 92 fL (80-95); MPV 10.1 fL (8.0-11.0); Monocytes % 17.2; Neutrophils % 72.4; Platelet Count 165 10^3/uL (130-400); RBC 4.06 10^6/uL (4.36-5.78); RDW 14.7 % (11.8-14.1); RDW-SD 47.6 fL; WBC 3.55 10^3/uL (4.4-10.8)
[2021-10-18 12:00] LABS: ALT 27 U/L (16-63); AST 22 U/L (15-37); Albumin 3.7 g/dL (3.4-5.0); Alkaline Phosphatase 67 U/L (46-116); Anion Gap 7.4 mmol/L (3-11); BUN 13 mg/dL (7-18); Bilirubin, Total 0.6 mg/dL (0.2-1.0); CO2 28.6 mmol/L (21.0-32.0); Chloride 102 mmol/L (98-107); Estimated GFR 79.47 (mL/min/1.73m2); Glucose 109 mg/dL (74-106); Potassium 3.9 mmol/L (3.5-5.1); Sodium 138 mmol/L (136-145); Total Protein 7.6 g/dL (6.4-8.2)
[2021-10-25 14:05] VITALS: BP 125/62; PULSE 79; RESP 16; TEMP 37.1
[2021-10-25 14:07] LABS: Abs Immature Grans 0.02 10^3/uL (0.0-0.06); Absolute Basophil Count 0.01 10^3/uL (0.0-0.2); Absolute Eosinophil Count 0.16 10^3/uL (0.0-0.7); Absolute Lymphocyte Count 0.19 10^3/uL (1.2-3.4); Absolute Monocyte Count 0.68 10^3/uL (0.1-0.8); Absolute Neutrophil Count 3.13 10^3/uL (1.2-6.7); Basophils % 0.2; Eosinophils % 3.8; HCT 33.9 % (40.0-50.0); HGB 11.5 g/dL (13.5-17.5); Immature Grans % 0.5; Lymphocytes % 4.5; MCH 31.8 pg (27.0-33.0); MCHC 33.9 % (32.0-36.0); MCV 94 fL (80-95); MPV 9.7 fL (8.0-11.0); Monocytes % 16.2; Neutrophils % 74.8; Platelet Count 117 10^3/uL (130-400); RBC 3.62 10^6/uL (4.36-5.78); RDW 15.1 % (11.8-14.1); RDW-SD 48.8 fL; WBC 4.19 10^3/uL (4.4-10.8)
[2021-10-25] MEDS: Normal Saline Flush 10 ML SYR IVP (14:14)
[2021-10-25] MEDS: Heparin 500 UNITS/5 ML SYRINGE IV (14:14)
[2021-10-25 14:25] LABS: ALT 24 U/L (16-63); AST 22 U/L (15-37); Albumin 3.3 g/dL (3.4-5.0); Alkaline Phosphatase 71 U/L (46-116); Anion Gap 4.7 mmol/L (3-11); BUN 13 mg/dL (7-18); Bilirubin, Total 0.5 mg/dL (0.2-1.0); CO2 30.3 mmol/L (21.0-32.0); CREATININE 0.9 mg/dL (0.70-1.30); Calcium 8.8 mg/dL (8.5-10.1); Chloride 104 mmol/L (98-107); Estimated GFR 90.18 (mL/min/1.73m2); Glucose 105 mg/dL (74-106); Potassium 3.8 mmol/L (3.5-5.1); Sodium 139 mmol/L (136-145); Total Protein 6.9 g/dL (6.4-8.2)
== END 2021-11-08 23:59 | disposition home or self-care (01) ==
LOC: INF 01:07
PROVIDERS: PCP Family Medicine; Visit Provider Nurse Practitioner Adult Health
DX: C25.1 Malignant neoplasm of body of pancreas (principal); Z45.2 Encounter for adjustment and management of vascular access device
CPT/HCPCS: 36591; 80053; 82607; 85025

== ENCOUNTER 2022-02-14 02:27 | Outpatient (CLI) | payer MEDICARE, BC, SELFPAY ==
[2022-02-14 12:05] LABS: Abs Immature Grans 0.01 10^3/uL (0.0-0.06); Absolute Basophil Count 0.04 10^3/uL (0.0-0.2); Absolute Eosinophil Count 0.15 10^3/uL (0.0-0.7); Absolute Lymphocyte Count 1.07 10^3/uL (1.2-3.4); Absolute Monocyte Count 0.99 10^3/uL (0.1-0.8); Absolute Neutrophil Count 2.86 10^3/uL (1.2-6.7); Basophils % 0.8; Eosinophils % 2.9; HCT 37.4 % (40.0-50.0); HGB 12.3 g/dL (13.5-17.5); Immature Grans % 0.2; Lymphocytes % 20.9; MCHC 32.9 % (32.0-36.0); MCV 97 fL (80-95); MPV 9.2 fL (8.0-11.0); Monocytes % 19.3; Neutrophils % 55.9; Platelet Count 296 10^3/uL (130-400); RBC 3.84 10^6/uL (4.36-5.78); RDW 12.8 % (11.8-14.1); RDW-SD 46.1 fL; WBC 5.12 10^3/uL (4.4-10.8)
[2022-02-14 12:19] LABS: ALT 48 U/L (16-63); AST 40 U/L (15-37); Albumin 3.8 g/dL (3.4-5.0); Alkaline Phosphatase 209 U/L (46-116); BUN 17 mg/dL (7-18); Bilirubin, Total 0.4 mg/dL (0.2-1.0); Calcium 9.1 mg/dL (8.5-10.1); Chloride 103 mmol/L (98-107); Estimated GFR 78.98 (mL/min/1.73m2); Glucose 107 mg/dL (74-106); Potassium 4.1 mmol/L (3.5-5.1); Sodium 138 mmol/L (136-145); Total Protein 7.9 g/dL (6.4-8.2)
[2022-02-17 11:58] LABS: CA 19-9 3954 U/mL (<35)
== END 2022-02-14 02:28 | disposition home or self-care (01) ==
LOC: LBO 02:28
PROVIDERS: PCP Family Medicine; Visit Provider Internal Medicine Hematology & Oncology
DX: C25.0 Malignant neoplasm of head of pancreas (principal)
CPT/HCPCS: 36415; 80053; 85025; 86301

== ENCOUNTER 2022-03-10 15:23 | Outpatient (REF) | payer MEDICARE, BC, SELFPAY | END 2022-03-10 15:24 | disposition home or self-care (01) | LOC: LBN 15:23 | PROVIDERS: PCP Family Medicine; Referring Provider Family Medicine; Visit Provider Family Medicine | DX: R30.0 Dysuria (principal) | CPT/HCPCS: 87086 ==